=== PATIENT | female | born 1970 | race Caucasian/White ===

== ENCOUNTER → 2020-11-01 16:32 | Outpatient (CLI) | payer MEDICARE, SELFPAY ==
[2020-11-01 18:38] LABS: PTHIN 56.3 pg/mL (18.4-80.1)
[2020-11-01 18:42] LABS: Follicle Stimulating Hormone 6.6 mIU/mL; Luteinizing Hormone 11.4 mIU/mL
[2020-11-06 18:24] LABS: Anti-Nuclear Antibody Test Negative (.)
[2020-11-08 07:07] LABS: Testosterone, % Free 2.55 % (0.50-2.80); Testosterone, Free 0.33 ng/dL (0.10-0.85); Testosterone, Total 13 ng/dL (4-50)
[2020-11-08 07:41] LABS: Androstenedione 32 ng/dL (41-262)
== END ==
PROVIDERS: Referring Provider Dermatology Pediatric Dermatology; Visit Provider Dermatology Pediatric Dermatology
DX: L65.0 Telogen effluvium (principal); L40.8 Other psoriasis; M12.9 Arthropathy, unspecified
CPT/HCPCS: 36415; 82157; 82310; 82330; 83001; 83002; 83970; 84402; 84403; 86038

== ENCOUNTER → 2021-11-06 | Outpatient (CLI) | payer OTHER, SELFPAY ==
--- NOTE | 2021-11-06 14:48 | RAD_ITS ---
STUDY: X-RAY - LUMBAR SPINE REASON FOR EXAM: Female, 51 years old. DISC DISPLACEMENT TECHNIQUE: 3 view(s) of the lumbar spine were obtained. COMPARISON: None FINDINGS: Normal lumbar lordosis. There is no substantial scoliosis. There is a normal alignment of the vertebrae. Normal vertebral bodies and endplates. Normal disc space heights. There are surgical clips within the left pelvis. RAD/Lumbar Spine 2 or 3 Views IMPRESSION: Normal x-ray examination of the lumbar spine. Electronically Signed: Yusuf Neves MD at 16:05 EDT ,
[2021-11-06 15:38] LABS: Amphetamine Urine VISTA NEGATIVE (<1000 ng/mL); Barbiturate Urine VISTA NEGATIVE (< 200 ng/mL); Benzodiazepine Urine VISTA POSITIVE (< 200 ng/mL); Cocaine Urine VISTA NEGATIVE (< 300 ng/mL); Ecstacy Urine VISTA NEGATIVE (< 500 ng/mL); Methadone Urine VISTA NEGATIVE (< 300 ng/mL); PCP Urine VISTA NEGATIVE (< 25 ng/mL); THC Urine VISTA NEGATIVE (< 50 ng/mL); Vista UDS pH Range 5
== END | disposition home or self-care (01) ==
PROVIDERS: Referring Provider Anesthesiology Pain Medicine; Visit Provider Anesthesiology Pain Medicine
DX: F11.20 Opioid dependence, uncomplicated (principal); M51.26 Other intervertebral disc displacement, lumbar region
CPT/HCPCS: 72100; 80307

== ENCOUNTER → 2022-07-28 | Outpatient (CLI) | payer MEDICARE, SELFPAY ==
[2022-07-28 14:35] LABS: Amphetamine Urine VISTA NEGATIVE (<1000 ng/mL); Barbiturate Urine VISTA NEGATIVE (< 200 ng/mL); Benzodiazepine Urine VISTA POSITIVE (< 200 ng/mL); Cocaine Urine VISTA NEGATIVE (< 300 ng/mL); Ecstacy Urine VISTA NEGATIVE (< 500 ng/mL); Methadone Urine VISTA NEGATIVE (< 300 ng/mL); PCP Urine VISTA NEGATIVE (< 25 ng/mL); THC Urine VISTA NEGATIVE (< 50 ng/mL); Vista UDS pH Range 5
== END | disposition home or self-care (01) ==
LOC: LAB 13:53
PROVIDERS: Referring Provider Anesthesiology Pain Medicine; Visit Provider Anesthesiology Pain Medicine
DX: F11.20 Opioid dependence, uncomplicated (principal)
CPT/HCPCS: 80307

== ENCOUNTER → 2023-03-10 | Outpatient (CLI) | payer MEDICARE, SELFPAY ==
[2023-03-10 11:38] LABS: Amphetamine Urine VISTA NEGATIVE (<1000 ng/mL); Barbiturate Urine VISTA NEGATIVE (< 200 ng/mL); Benzodiazepine Urine VISTA NEGATIVE (< 200 ng/mL); Cocaine Urine VISTA NEGATIVE (< 300 ng/mL); Ecstacy Urine VISTA NEGATIVE (< 500 ng/mL); Methadone Urine VISTA NEGATIVE (< 300 ng/mL); PCP Urine VISTA NEGATIVE (< 25 ng/mL); THC Urine VISTA NEGATIVE (< 50 ng/mL); Vista UDS pH Range 6
--- OUTSIDE RECORDS SUMMARY | 2023-03-10 11:50 | XMS RPT_ITS | CCD ---
Author Name Unknown Address [address] [place] [address] Organization [facility] Care Team Providers Care [facility] Room Service Supervisor Name Role Phone OVI MULLINS Unavailable Unavailable HOSPITALISTJOSÉ LUIS Unavailable Unavailable THIERNO VÁSQUEZ Unavailable Unavailable OVI UMLLINS Unavailable Unavailable kSy Garsia Unavailable Unavailable PROVIDER, UNKNOWN Unavailable Unavailable Ovi Mullins Unavailable Unavailable MERT, LUIS J Unavailable Unavailable JHOAN, ELENI Unavailable Unavailable IMCA Unavailable Unavailable IMCA Unavailable Unavailable JHOAN, ELENI Unavailable Unavailable IMCA Unavailable Unavailable IMCA Unavailable Unavailable JHOAN, ELENI Unavailable Unavailable IMCA Unavailable Unavailable JHOAN, ELENI Unavailable Unavailable IMCA Unavailable Unavailable JHOAN, ELENI Unavailable Unavailable IMCA Unavailable Unavailable IMCA Unavailable Unavailable JHOAN, ELENI Unavailable Unavailable IMCA Unavailable Unavailable IMCA Unavailable Unavailable JHOAN, ELENI Unavailable Unavailable IMCA Unavailable Unavailable JHOAN, ELENI Unavailable Unavailable IMCA Unavailable Unavailable JHOAN, ELENI Unavailable Unavailable IMCA Unavailable Unavailable IMCA Unavailable Unavailable JHOAN, ELENI Unavailable Unavailable IMCA Unavailable Unavailable IMCA Unavailable Unavailable JHOAN, ELENI Unavailable Unavailable IMCA Unavailable Unavailable JHOAN, ELENI Unavailable Unavailable IMCA Unavailable Unavailable JHOAN, ELENI Unavailable Unavailable IMCA Unavailable Unavailable JHOAN, ELENI Unavailable Unavailable IMCA Unavailable Unavailable JHOAN, ELENI Unavailable Unavailable IMCA Unavailable Unavailable GROSS, SANDIP L Unavailable Unavailable IMCA Unavailable Unavailable JHOAN, ELENI Unavailable Unavailable IMCA Unavailable Unavailable IMCA Unavailable Unavailable RANDALL, SHANDRA (FEL) Unavailable Unavailabl e IMCA Unavailable Unavailable IMCA Unavailable Unavailable RANDALL, SHANDRA (FEL) Unavailable Unavailabl e IMCA Unavailable Unavailable RANDALL, SHANDRA (FEL) Unavailable Unavailabl e IMCA Unavailable Unavailable IMCA Unavailable Unavailable RANDALL, SHANDRA (FEL) Unavailable Unavailabl e IMCA Unavailable Unavailable RANDALL, SHANDRA (FEL) Unavailable Unavailabl e JHOAN, ELENI M Unavailable Unavailable JHOAN, ELENI M Unavailable Unavailable JHOAN, ELENI M Unavailable Unavailable JHOAN, ELENI M Unavailable Unavailable JHOAN, ELENI M Unavailable Unavailable JHOAN, ELENI M Unavailable Unavailable JHOAN, ELENI M Unavailable Unavailable JHOAN, ELENI M Unavailable Unavailable GROSSSANDIP (RAILROAD CAR LOADER) Unavailable Unavailable RANDALL, SHANDRA Unavailable Unavailable RANDALL, SHANDRA Unavailable Unavailable MARIE [employer]ILRO[employer] CAR LOADER, TONO M Primary Care Physicia n MARIE [employer]RO[employer] CAR LOADER, TONO M Primary Care Physicia n Marie, Tono M Primary Care Provider Tiffany Lindsay MD Unavailable Mcfaddin, Tono M Primary Care Provider Tiffany Lindsay MD Unavailable Kang Anna DPM Unavailable Michelle Gloria MD Primary Care Provider ANABELLE COLLADO Attending Unavailable MARIE, TONO M Primary Care Unavailable IVY KAUFMAN Referring Unavailable IVY KAUFMAN Attending Unavailable MARIE, TONO M Primary Care Unavailable SHAE IVY Referring Unavailable ALEJANDRINA GARNETT Attending Unavailable MARIE, TONO M Primary Care Unavailable MICHELLE GLORIA Primary Care Unavailable ALEJANDRINA GARNETT Attending Unavailable MICHELLE GLORIA Primary Care Unavailable ALEJANDRINA GARNETT Referring Unavailable MICHELLE LGORIA Primary Care Unavailable ALEJANDRINA GARNETT Referring Unavailable KACIE ANTHONY Attending Unavailable MICHELLE GLORIA Primary Care Physician Tiffany Lindsay MD Unavailable Kang Anna DPM Unavailable Michelle Gloria MD Primary Care Provider IVY KAUFMAN Referring Unavailable MARIE, TONO M Primary Care Unavailable HALLGREN, PIEDAD M Attending Unavailable WIDMAR, ANABELLE A Referring Unavailable MARIE, TONO M Primary Care Unavailable HALLGREN, PIEDAD M Attending Unavailable WIDMAR, ANABELLE A Referring Unavailable MARIE, TONO M Primary Care Unavailable HALLGREN, PIEDAD M Attending Unavailable WIDMAR, ANABELLE A Referring Unavailable MARIE, TONO M Primary Care Unavailable JULITA IBRAHIM Admitting Unavailable JULITA IBRAHIM Attending Unavailable MICHELLE GLORIA Primary Care Unavailable MICHELLE GLORIA Referring Unavailable MICHELLE GLORIA Primary Care Unavailable MICHELLE GLORIA Referring Unavailable MICHELLE GLORIA Primary Care Unavailable RENEE CASTRO MD Attending UnavailMD MICHELLE Schilling Primary Care Unavailable MD MICHELLE GLORIA Attending Unavailable MD MICHELLE GLORIA Primary Care Unavailable MD MICHELLE GLORIA Primary Care Unavailable RENEE CASTRO MD Attending UnavailMD MICHELLE Schilling Attending Unavailable MD MICHELLE GLORIA Admitting Unavailable MD MICHELLE GLORIA Primary Care Unavailable MD MICHELLE GLORIA Attending Unavailable MD MICHELLE GLORIA Primary Care Unavailable ALEXUS PRYOR DO Attending Unavailable MD MICHELLE GLORIA Primary Care Unavailable ALEXI VILLALPANDO, DR HERNANDEZ Attending Unavailable MD MICHELLE GLORIA Primary Care Unavailable HANH RAM PA-C Attending UnavailMD MICHELLE Jaime Primary Care Unavailable ALEXI VILLALPANDO, DR HERNANDEZ Attending Unavailable MD MICHELLE GLORIA Primary Care Unavailable ALEXI VILLALPANDO, DR HERNANDEZ Attending Unavailable MD MICHELLE GLORIA Primary Care Unavailable RENEE CASTRO MD Attending UnavailMD MICHELLE Schilling Primary Care Unavailable RENEE CASTRO MD Attending UnavailMD MICHELLE Schilling Primary Care Unavailable Allergies Allergy Classification Reported Allergen(s) Allergy Type Date of Onset Reaction(s) Facility (2 sources) NSAIDs; Translations: [NSAIDS (NON-STEROIDAL ANTI-INFLAMMATO RY DRUG)] Propensity to adverse reactions (disorder) [facility]) Ondansetron; Translations: [ONDANSETRON HCL (PF)] Drug Allergy 9 Mental Status Change [facility] Repository (20 sources) Vancomycin; Translations: [VANCOMYCIN] Drug Allergy 8 Hives [facility] Repository (18 sources) Ketorolac; Translations: [ketorolac] Drug Allergy 1 Anaphylaxis [facility] (7 sources) nabumetone; Translations: [nabumetone] Drug Allergy JOINT STIFFNESS [facility] (7 sources) Ondansetron; Translations: [ondansetron] Drug Allergy [facility] Medications Current Medications Medication Drug Class(es) Dates Sig (Normalized) Sig (Original) aspirin 81 mg delayed release oral tablet (1 source) Platelet Aggregation Inhibitor, Nonsteroidal Anti-inflammatory Drug Start: 06-11-2020 Aspirin Enteric Coated 81 mg oral delayed release tablet Dose : 81 mg = 1 tab(s), Oral, qDay, # 90 tab(s), 0 Refill(s), [facility]: [facility], 155, cm, 05/17/20 9:06:00 EDT, Height, kg, 05/17/20 9:06:00 EDT, Dosing Weight Start Date: 06/11/20 Status: Ordered Aspirin Enteric Coated 81 mg oral delayed release tablet (6 sources) Start: 06-11-2020 Aspirin Enteric Coated 81 mg oral delayed release tablet Dose : 81 mg = 1 tab(s), Oral, qDay, # 90 tab(s), 0 Refill(s), [facility]: [facility] 155, cm, 05/17/20 9:06:00 EDT, Height, kg, 05/17/20 9:06:00 EDT, Dosing Weight Start Date: 06/11/20 Status: Ordered Copaxone 40 mg/mL subcutaneous solution (1 source) Start: 09-09-2019 Copaxone 40 mg/mL subcutaneous solution Dose : 40 mg =, Subcutaneous, Mon/Wed/Fri, 0 Refill(s) Start Date: 09/09/19 Status: Ordered 1 ml glatiramer acetate 40 mg/ml prefilled syringe (6 sources) Start: 09-09-2019 Copaxone 40 mg/mL subcutaneous solution Dose : 40 mg =, Subcutaneous, Mon/Thu/Fri, 0 Refill(s) Start Date: 09/09/19 Status: Ordered pantoprazole 40 mg delayed release oral tablet (7 sources) Proton Pump Inhibitor Start: 05-17-2020 pantoprazole 40 mg oral enteric coated tablet Dose : 40 mg = 1 tab(s), Oral, qDay Start Date: 05/17/20 Status: Ordered potassium chloride 10 meq extended release oral tablet (7 sources) Start: 09-09-2020 Klor-Con 10 oral tablet, extended release Dose : 10 mEq = 1 tab(s), Oral, qDayM, # 30 tab(s), 3 Refill(s), [address] [facility] [address] 165, cm, 09/03/20 11:31:00 EDT, Height, kg, 09/03/20 11:31:00 EDT, Dosing Weight Start Date: 09/09/20 Status: Ordered Completed/Discontinued Medications Medication Drug Class(es) Dates Sig (Normalized) Sig (Original) atorvastatin 40 mg oral tablet (8 sources) HMG-CoA Reductase Inhibitor Start: 05-17-2020 atorvastatin (LIPITOR) 40 mg tablet Take 20 mg by mouth every morning. 0 05/17/2020 Active Problems Active Problems Problem Classification Problem Date Documented Date Episodic/Chronic Alcohol-related disorders (2 sources) Alcohol dependence, uncomplicated; Translations: [Alcohol dependence, uncomplicated (HCC)] Onset: 01-21-20 Chronic Anxiety disorders (16 sources) Anxiety; Translations: [Generalized anxiety disorder] Onset: 01-21-20 22 05-23-2019 Chronic Calculus of urinary tract (7 sources) Urolith 06-04-2016 Episodic Cataract (2 sources) Cortical age-related cataract, bilateral; Translations: [Cortical age-related cataract, bilateral] Onset: 03-30-19 Chronic Diabetes mellitus without complication (7 sources) Type 2 diabetes mellitus 05-01-2020 Chronic Diseases of white blood cells (2 sources) Elevated white blood cell count, unspecified; Translations: [Elevated white blood cell count, unspecified] Onset: 07-21-19 Chronic Disorders of lipid metabolism (7 sources) Hypercholesterolemia 05-23-2019 Chronic Esophageal disorders (7 sources) Gastroesophageal reflux disease 06-04-2016 Chronic Essential hypertension (7 sources) Hypertensive disorder 02-22-2020 Chronic Malaise and fatigue (3 sources) Other malaise; Translations: [Other fatigue] Onset: 07-21-19 Episodic Mood disorders (7 sources) Depressive disorder 05-23-2019 Chronic Multiple sclerosis (9 sources) Multiple sclerosis; Translations: [Multiple sclerosis] Onset: 10-23-1906-04-2016 Chronic Neoplasms of unspecified nature or uncertain behavior (2 sources) Neoplasm of uncertain behavior of appendix; Translations: [Neoplasm of uncertain behavior of digestive organ, unspecified] Onset: 01-14-20 Episodic Nonspecific chest pain (1 source) Chest pain; Translations: [Chest pain, unspecified] Onset: 05-12-19 Episodic Other connective tissue disease (5 sources) Pain in both feet; Translations: [Pain in right foot] Onset: 11-15-19 Episodic Other connective tissue disease (6 sources) Pain of bilateral hands; Translations: [Pain in right hand] Onset: 11-15-19 Episodic Other gastrointestinal disorders (1 source) Other intra-abdominal and pelvic swelling, mass and lump; Translations: [Other intra-abdominal and pelvic swelling, mass and lump] Onset: 01-14-20 Episodic Other liver diseases (2 sources) Fatty (change of) liver, not elsewhere classified; Translations: [Fatty (change of) liver, not elsewhere classified] Onset: 04-23-19 Chronic Other nervous system disorders (6 sources) Neuropathy; Translations: [Polyneuropathy, unspecified] Onset: 11-15-19 Chronic Other nervous system disorders (1 source) Polyneuropathy; Translations: [Polyneuropathy, unspecified] Chronic Other nervous system disorders (1 source) Carpal tunnel syndrome, left upper limb; Translations: [Carpal tunnel syndrome on left] Onset: 04-19-19 Chronic Other nervous system disorders (3 sources) Polyneuropathy, unspecified; Translations: [Neuropathy] Onset: 11-15-19 Chronic Other nervous system disorders (5 sources) Impairment of balance; Translations: [Other abnormalities of gait and mobility] Onset: 11-15-19 Episodic Other screening for suspected conditions (not mental disorders or infectious disease) (1 source) Other abnormal tumor markers; Translations: [Other abnormal tumor markers] Onset: 02-16-20 18 Episodic Other skin disorders (1 source) Localized swelling, mass and lump, trunk; Translations: [Localized swelling, mass and lump, trunk] Onset: 02-18-19 19 Episodic Phlebitis; thrombophlebitis and thromboembolism (7 sources) Deep venous thrombosis of lower extremity 02-22-2020 Episodic Residual codes; unclassified (1 source) Family history of ischemic heart disease and other diseases of the circulatory system; Translations: [Family history of ischemic heart disease and other diseases of the circulatory system] Onset: 06-10-19 23 Episodic Substance-related disorders (7 sources) Substance misuse behavior 10-15-2020 Episod ic Unclassified (3 sources) Unknown / UNK(Unknown) Onset: 08-25-19 17 Past or Other Problems Problem Classification Problem Date Documented Da te Episodic/Chronic Allergic reactions (4 sources) Allergy status to other antibiotic agents status; Translations: [Allergy status to other drugs, medicaments and biological substances status] Onset: 03-30-2017 Episodic Chronic obstructive pulmonary disease and bronchiectasis (1 source) Chronic obstructive pulmonary disease and bronchiectasis Onset: 08-24-2016 Lymphadenitis (1 source) Generalized enlarged lymph nodes; Translations: [Generalized enlarged lymph nodes] Onset: 07-20-2017 Episodic Other connective tissue disease (2 sources) Pain in right hand; Translations: [Pain in both hands] Onset: 11-14-2021 Episodic Other connective tissue disease (2 sources) Pain in left hand; Translations: [Pain in both hands] Onset: 11-14-2021 Episodic Other connective tissue disease (1 source) Pain in right foot; Translations: [Pain in both feet] Onset: 11-14-2021 Episodic Other connective tissue disease (1 source) Pain in left foot; Translations: [Pain in both feet] Onset: 11-14-2021 Episodic Other eye disorders (2 sources) Ocular pain, left eye; Translations: [Ocular pain, left eye] Onset: 03-30-2017 Episodic Other gastrointestinal disorders (2 sources) Change in bowel habit; Translations: [Change in bowel habit] Onset: 07-03-2022 Episodic Other gastrointestinal disorders (2 sources) Abdominal distension (gaseous); Translations: [Abdominal distension (gaseous)] Onset: 07-03-2022 Episodic Other lower respiratory disease (1 source) Shortness of breath; Translations: [Shortness of breath] Onset: 07-20-2017 Episodic Other nervous system disorders (2 sources) Personal history of other diseases of the nervous system and sense organs; Translations: [Personal history of dis of the nervous sys and sense organs] Onset: 03-30-2017 Episodic Other nervous system disorders (1 source) Other abnormalities of gait and mobility; Translations: [Balance problem] Onset: 11-14-2021 Episodic Viral infection (1 source) Infectious mononucleosis, unspecified without complication; Translations: [Infectious mononucleosis, unspecified without complication] Onset: 08-10-2017 Episodic Results Test Name Value Interpretation Reference Range Facil ity Vital Signs Date Time Vital Sign Value Performing Clinician Facility 12-05-2021 13:05-0400 Body height 159.5 cm Alejandrina Garnett APRN.CNP Work Phone: [facility] 12-05-2021 13:05-0400 Body temperature 97.5 [degF] Alejandrina Garnett APRN.[employer]ILRO[employer] CAR LOADER Work Phone: [facility] 12-05-2021 13:05-0400 Body weight 70.76 kg Alejandrina Garnett APRN.[employer]ILRO[employer] LOADER Work Phone: [facility] 12-05-2021 13:05-0400 Diastolic blood pressure 76 mm[Hg] Alejandrina Garnett APRN.RAILROAD CAR LOADER Work Phone: [facility] 12-05-2021 13:05-0400 Heart rate 85 /min Alejandrina Garnett APRN.RAILROAD CAR LOADER Work Phone: [facility] 12-05-2021 13:05-0400 Systolic blood pressure 111 mm[Hg] Alejandrina Garnett APRN.RAILROAD CAR LOADER Work Phone: [facility] 07-23-2021 02:10-0400 Diastolic blood pressure 82 mm[Hg] DR TERRI MONSIVAIS DO [facility] 07-23-2021 02:10-0400 Heart rate 81 /min DR TERRI MONSIVAIS DO [facility] 07-23-2021 02:10-0400 Respiratory rate 16 /min DR TERRI RIDER DO [facility] 07-23-2021 02:10-0400 Systolic blood pressure 132 mm[Hg] DR TERRI RIDER DO [facility] 07-22-2021 23:34-0400 Body temperature 97.52 [degF] DR TERRI RIDER DO [facility] 07-22-2021 23:34-0400 Heart rate 79 /min DR TERRI RIDER DO [facility] 07-22-2021 23:34-0400 Respiratory rate 18 /min DR TERRI RIDER DO [facility] 07-22-2021 18:17-0400 Body temperature 99.32 [degF] DR TERRI RIDER DO [facility] 07-22-2021 18:17-0400 Body weight 69.[address] TERRI RIDER DO [facility] 07-22-2021 18:17-0400 Diastolic blood pressure 96 mm[Hg] DR TERRI RIDER DO [facility] 07-22-2021 18:17-0400 Heart rate 92 /min DR TERRI RIDER DO [facility] 07-22-2021 18:17-0400 Respiratory rate 22 /min DR TERRI RIDER DO [facility] 07-22-2021 18:17-0400 Systolic blood pressure 167 mm[Hg] DR TERRI MONSIVAIS DO [facility] 05-11-2021 02:36-0400 Diastolic blood pressure 80 mm[Hg] MANAV LAI DO [facility] 05-11-2021 02:36-0400 Heart rate 71 /min MANAV LAI DO [facility] 05-11-2021 02:36-0400 Respiratory rate 14 /min MANAV LAI DO [facility] 05-11-2021 02:36-0400 Systolic blood pressure 119 mm[Hg] MANAV LAI DO [facility] 05-11-2021 00:41-0400 Diastolic blood pressure 98 mm[Hg] MANAV LAI DO [facility] 05-11-2021 00:41-0400 Heart rate 66 /min MANAV LAI DO [facility] 05-11-2021 00:41-0400 Mean blood pressure 106 mm[Hg] MANAV LAI DO [facility] 05-11-2021 00:41-0400 Respiratory rate 12 /min MANAV LAI DO [facility] 05-11-2021 00:41-0400 Systolic blood pressure 123 mm[Hg] MANAV LAI DO [facility] 05-10-2021 21:56-0400 Diastolic blood pressure 86 mm[Hg] MANAV LAI DO [facility] 05-10-2021 21:56-0400 Heart rate 80 /min MANAV LAI DO [facility] 05-10-2021 21:56-0400 Respiratory rate 18 /min MANAV LAI DO [facility] 05-10-2021 21:56-0400 Systolic blood pressure 130 mm[Hg] MANAV LAI DO [facility] Encounters Encounter Date Encounter Type Care Provider Facility Start: 02-28-2023 End: 02-28-2023 ambulatory HANH RAM PA-C Facility:A Start: 07-23-2022 End: 07-24-2022 ambulatory MD MICHELLE GLORIA Facility:B Start: 07-23-2022 End: 07-23-2022 Patient encounter procedure RENEE CASTRO MD [facility] Start: 07-07-2022 End: 07-08-[address] MARY TRUONG MD Facility:A Start: 07-03-2022 End: 07-08-[address] MARY TRUONG MD Facility:A Start: 06-09-2022 ambulatory Melissa Escobedo RT(R) [facility] Medicine Procedures Date Procedure Procedure Detail Performing Clinician Start: 10-24-2021 Adult depression scr eening assessment Anabelle Collado [employer]ADER Work Phone: Start: 10-22-2021 Mri brain brain stem w/o w/contrast material Ivy Kaufman MD Work Phone: Start: 03-25-2021 Adult depression scr eening assessment [facility] Start: 01-09-2021 Colonoscopy Piedad Clay desmondgren PT Start: 02-16-2009 Diagnostic laparoscopy MANAVMARGY LAI DO Start: 02-16-2009 Oophorectomy MANAV RANDLE DO Start: 02-16-2005 Augmentation mammoplasty MANAV LAI DO Plan of Treatment Date Care Activity Detail Author Start: 12-05-2024 DIABETES SCREEN DIABETES SCREEN [facility] Start: 10-18-2023 DIABETES SCREEN DIABETES SCREEN [facility] Start: 10-24-2022 Adult depression screening assessment DEPRESSION SCREENING [facility] Start: 10-17-2022 Influenza vaccination INFLUENZ A (Season Ended) [facility] Start: 03-25-2022 Adult depression screening assessment DEPRESSION SCREENING [facility] Start: 02-16-2022 DEPRESSION ASSESSMENT DEPRESSION ASS ESSMENT [facility] Start: 01-09-2022 Colonoscopy COLONOSCOPY [facility] Start: 01-09-2022 COLORECTAL CANCER SCREENING COLORECTAL CANCER SCREENING [facility] Start: 12-05-2021 End: 02-04-2022 C reactive protein [Mass/volume] in Serum or Plasma [facility] Work Phone: Immunizations Immunization Date Immunization Notes Care Provider Fa cility 10-03-2020 tetanus toxoid, redu anibal diphtheria toxoid, and acellular pertussis vaccine, adsorbed; Translations: [Boostrix (Tdap)] MANAV LAI DO [facility] 03-03-2009 tetanus and diphther ia toxoids, adsorbed, preservative free, for adult use (5 Lf of tetanus toxoid and 2 Lf of diphtheria toxoid) MANAV LAI DO [facility] Payers Date Payer Category Payer Medicaid MEDICAID [facility] MEDICAID [id number] 2021-Present [phone] [address] [place] [address] Medicaid [id number] 2021 Medicaid [id number] 2021 Unknown [id number] 2011 Medicare 1971 Unknown [id number] 2.16.840.1.397011.3.579.2.278 1971 Unknown [id number] 2.16.840.1.158688.3.579.2.278 1971 Unknown [id number] 2.16.840.1.478262.3.579.2.278 1971 Unknown [id number] 2.16.840.1.499163.3.579.2.278 1971 Unknown [id number] 2.16.840.1.782344.3.579.2.278 1971 Unknown [id number] 2.16.840.1.837993.3.579.2.278 1971 Unknown [id number] 2.16.840.1.096962.3.579.2.278 1971 Unknown [id number] 2.16840.1.941128.3.579.2.278 1971 Unknown [id number] 2.16.840.1.991195.3.579.2.278 1971 Unknown [id number] 2.16.840.1.856212.3.579.2.278 1971 Unknown [id number] 2.16.840.1.753873.3.579.2.278 1971 Unknown [id number] 2.16.840.1.212000.3.579.2.278 1971 Unknown [id number] 2.16.840.1.981341.3.579.2.278 1971 Unknown [id number] 2.16.840.1.435375.3.579.2.278 1971 Unknown [id number] 2.16.840.1.002923.3.579.2.278 1971 Unknown [id number] 2.16.840.1.299985.3.579.2.278 1971 Unknown [id number] 2.16.840.1.102517.3.579.2.278 1971 Unknown [id number] 2.16.840.1.189703.3.579.2.278 1971 Unknown [id number] 2.16.840.1.046287.3.579.2.278 1971 Unknown [id number] 2.16.840.1.019033.3.579.2.278 1971 Unknown [id number] 2.16.840.1.256530.3.579.2.278 1971 Unknown [id number] 2.16.840.1.588562.3.579.2.278 1971 Unknown [id number] 2.16.840.1.958320.3.579.2.278 1971 Unknown [id number] 2.16840.1.345894.3.579.2.278 1971 Unknown [id number] 2.840.1.813876.3.579.2.62 1971 Unknown [id number] 2.16840.1.297483.3.579.2.62 1971 Unknown [id number] 2.16.840.1.183435.3.579.2.627 1971 Unknown [id number] 2.16840.1.706219.3.579.2.627 1971 Unknown [id number] 2.16.840.1.837192.3.579.2.627 1971 Unknown [id number] 2.16.840.1.143366.3.579.2.627 1971 Unknown [id number] 2.16.840.1.954273.3.579.2.627 1971 Unknown [id number] 2.16.840.1.629055.3.579.2.627 1971 Unknown [id number] 2.16.840.1.592776.3.579.2.627 1971 Unknown [id number] 2.16.840.1.505697.3.579.2.627 1971 Unknown [id number] 2.16.840.1.373697.3.579.2.627 1971 Unknown [id number] 2.16.840.1.581582.3.579.2.627 Medicare [id number] Medicare [id number] Social History Date Type Detail Facility Start: 05-01-2020 Light tobacco smoker (finding) [facility] Sex Assigned At Female [facility] Start: 02-18-2018 End: 12-05-2021 Tobacco smoking status ALIS Smokes tobacco daily [facility] End: 02-16-2022 History of tobacco use Cigarette Smoker [facility] Start: 02-18-2018 End: 04-15-2022 Cigarettes smoked current (pack per day) - Reported 0.3 [facility] Start: 02-18-2018 End: 04-15-2022 Tobacco use and exposure Smokeless tobacco non-user [facility] Start: 03-27-2021 End: 12-05-2021 Alcohol intake Current non-drinker of alcohol (finding) [facility] Start: 1970 Sex Assigned At Not on file C [facility] Start: 10-12-2021 End: 12-05-2021 Exposure to SARS-CoV-2 (event) Not sure [facility] Start: 04-15-2022 Tobacco smoking stat us ALIS Ex-smoker [facility] End: 02-16-2022 History of tobacco use Current smoker [facility] Start: 04-18-2022 Alcohol intake Ex-drinker (finding) [facility] Start: 04-15-2022 Alcohol Comment [facility] Functional Status Date Assessment Result Facility 07-23-2021 Functional Status Awake [facility] Mental Status Date Assessment Result Facility 07-23-2021 Mental Status Oriented x [facility] Clinical Notes 06-07-2021 to 06-09-2022 Yusuf Galeano RT(R) - 06/09/2022 8:30 AM Mikal Garnett APRN.RAILROAD CAR LOADER - 12/12/2021 1:17 PM Mikal Garnett APRN.RAILROAD CAR LOADER - 12/05/2021 1:18 PM Charbel Garza - 12/05/2021 9:37 AM EDT Note Date & Type Note Facility 06-09-2022 Note HNO ID: [id number] Author: RT Alie(R) Service: ? Author Type: Technologist Type: Progress Notes Filed: 06/09/2022 8:31 AM Note Text: RADIOLOGY SERVICE PROGRESS NOTE SERVICE DATE: 06/09/2022 SERVICE TIME: 8:30 AM PATIENT IDENTITY VERIFICATION COMPLETED USING TWO (2) STANDARD IDENTIFIERS: Name and Date of confirmed by patient verbally FALL SCREENING: Has the patient had 2 falls in the last year or 1 fall with injury or currently using an Ambulatory Assistive Device (Walker, Cane, Wheelchair, Crutches, etc.)? No PATIENT GENDER DATA: .female : No status: No ALLERGIES: Reviewed and unchanged MEDICATIONS REVIEWED: Not applicable PATIENT RELEVANT IMPLANT DATA REVIEWED: Not Applicable CREATININE: Creatinine Date Value Ref Range Status 12/05/2021 0.68 0.58 - 0.96 mg/dL Final 07/31/2020 0.52 0.510 - 0.950 MG/DL Final Comment: Patients receiving either N-Acetylcysteine (NAC) or Metamizole prior to venipuncture, may have falsely depressed results. 01/13/2018 0.74 0.51 - 0.95 mg/dL Final Estimated Glomerular Filtration Rate Date Value Ref Range Status 12/05/2021 106 >=60 mL/min/1.73m? Final Comment: Estimated Glomerular Filtration Rate (eGFR) is calculated using the 2020 CKD-EPI creatinine equation. This equation utilizes serum creatinine, sex, and age as parameters. The creatinine assay has traceable calibration to isotope dilution-mass spectrometry. Refer to KDIGO guidelines for clinical interpretation. In patients with unstable renal function, e.g. those with acute kidney injury, the eGFR may not accurately reflect actual GFR. eGFR- Date Value Ref Range Status 07/31/2020 Greater than 60 Final P.O.C.T. RESULTS: N/A June 09, [address] PERFORMED: No IV SITE: Ambulatory: A peripheral IV was started in the Right antecubital site with a Angio cath: 22 gauge. POST EXAM PIV STATUS: Discontinued PROCEDURE TYPE: NM Stress: 13.3 mCi [id number] was administered IV for Rest Imaging at 06:35 by [facility]. 31 mCi Hm26h-[id number] was administered IV for Stress Imaging at 08:15 by [facility]. ADMINISTRATION TIME: 08:15 PATIENT DISCHARGED TO: Ambulatory patient, left NM department area. A Diagnostic radioactive procedure has taken place, with no further precautions necessary other than routine body substance precautions. More information regarding radiation safety can be found using this link: [email or web address] [email or web address]%20Medic [email or web address] SIGNATURE: RT Alie(R) PATIENT NAME: Jimmy Villar DATE: June 09, 2022 TIME: 8:30 AM PAGER/CONTACT #: [facility] 06-09-2022 History of Present illness Narrative RADIOLOGY SERVICE PROGRESS NOTE SERVICE DATE: 06/09/2022 SERVICE TIME: 8:30 AM PATIENT IDENTITY VERIFICATION COMPLETED USING TWO (2) STANDARD IDENTIFIERS: Name and Date of confirmed by patient verbally FALL SCREENING: Has the patient had 2 falls in the last year or 1 fall with injury or currently using an Ambulatory Assistive Device (Walker, Cane, Wheelchair, Crutches, etc.)? No PATIENT GENDER DATA: .female : No status: No ALLERGIES: Reviewed and unchanged MEDICATIONS REVIEWED: Not applicable PATIENT RELEVANT IMPLANT DATA REVIEWED: Not Applicable CREATININE: Creatinine Date Value Ref Range Status 12/05/2021 0.68 0.58 - 0.96 mg/dL Final 07/31/2020 0.52 0.510 - 0.950 MG/DL Final Comment: Patients receiving either N-Acetylcysteine (NAC) or Metamizole prior to venipuncture, may have falsely depressed results. 01/13/2018 0.74 0.51 - 0.95 mg/dL Final Estimated Glomerular Filtration Rate Date Value Ref Range Status 12/05/2021 106 >=60 mL/min/1.73m Final Comment: Estimated Glomerular Filtration Rate (eGFR) is calculated using the 2020 CKD-EPI creatinine equation. This equation utilizes serum creatinine, sex, and age as parameters. The creatinine assay has traceable calibration to isotope dilution-mass spectrometry. Refer to KDIGO guidelines for clinical interpretation. In patients with unstable renal function, e.g. those with acute kidney injury, the eGFR may not accurately reflect actual GFR. eGFR- Date Value Ref Range Status 07/31/2020 Greater than 60 Final P.O.C.T. RESULTS: N/A June 09, [address] PERFORMED: No IV SITE: Ambulatory: A peripheral IV was started in the Right antecubital site with a Angio cath: 22 gauge. POST EXAM PIV STATUS: Discontinued PROCEDURE TYPE: NM Stress: 13.3 mCi [id number] was administered IV for Rest Imaging at 06:35 by [facility]. 31 mCi [id number] was administered IV for Stress Imaging at 08:15 by [facility]. ADMINISTRATION TIME: 08:15 PATIENT DISCHARGED TO: Ambulatory patient, left NM department area. A Diagnostic radioactive procedure has taken place, with no further precautions necessary other than routine body substance precautions. More information regarding radiation safety can be found using this link: [email or web address] [email or web address] [email or web address] SIGNATURE: RT Alie(Ameya) PATIENT NAME: Jimmy Villar DATE: June 09, 2022 TIME: 8:30 AM PAGER/CONTACT #: documented in this encounter [facility] 04-17-2022 Note HNO ID: [id number] Author: Michaelle Muniz RN Service: Nursing Author Type: Registered Nurse Type: Progress Notes Filed: 04/17/2022 1:59 PM Note Text: PRE-PROCEDURE INSTRUCTIONS TO PREPARE FOR YOUR PROCEDURE: Your arrival time for your procedure is 0600. Do NOT eat any solid foods after MIDNIGHT the night prior to your procedure - this includes gum or mints. You can drink clear liquids* up until 0400, which is 2 hours before your arrival time. *Clear liquids = water, carbohydrate drink (sports drink that is clear or yellow in color), Ensure Pre-Surgery (given by TRINI or your ), fruit juice without pulp (apple/cranberry), clear tea, black coffee (no cream). NO ALCOHOL. Shower the morning of the procedure, put on clean clothes, and have clean sheets for your bed to help prevent infection after your procedure. Leave all valuables such as jewelry including rings, piercings, wallets, and purses at home. Wear comfortable, loose-fitting clothing. If you wear glasses or contacts, please bring a case. SPECIAL INSTRUCTIONS: If instructed, bring your first voided urine specimen with you. If you were provided skin preparation to use prior to your procedure, complete this as directed. If you were provided Ensure Pre-Surgery drink, you need to drink this at . This should be consumed quickly (in less than 5 minutes, rather than sipped over time) If you use crutches or a walker, bring them with you. If you have a home CPAP/BIPAP machine, bring it with you. If you were instructed to complete a fleets enema or bowel prep, complete as directed. Bring copy of Living Will/Power of Offensive Coordinator. Do not smoke or chew. If you use tobacco, quit or at least cut down before surgery. Do not smoke or chew after midnight the day before your surgery. This effects bleeding, infection, healing, and so much more. Do not take any Diet or Herbal Supplements 2 weeks prior to your surgery date. Please notify your physician if there is any change in your physical condition such as a cold, cough, fever, sore throat, or skin irritation near the surgical site. Visitors under the age of 14 are restricted in the Surgery Center. UPON ARRIVAL: Access to [facility] (the [facility] building) is located on [address] New Car Driver parking is available for your convenience from 5am-5pm- there is a $5.00 charge for this service. Take the elevators directly inside the entrance to the 1st Floor Surgery Lobby. Sign in at the podium located to the left when you get off the elevators. A payment may be expected at the time of service. One visitor may come back to the preoperative area with you. The preoperative staff will be reviewing your medical history, please let them know if you prefer not to have a visitor with you during this time. Once you are ready for surgery, two visitors at a time are permitted in your preoperative room. PATIENT MEDICATION INSTRUCTIONS Please read below carefully for your personalized instructions. Medications: If you are on blood thinner or anticoagulants including aspirin, please confirm with your surgical team on when to stop these medications. Unless instructed differently by your surgical team, stay on all of your medications until your surgery. Pre-Surgery Med Instructions Medication Instructions sertraline (ZOLOFT) 100 mg tablet Take morning of surgery with a sip of water, no other fluids atorvastatin (LIPITOR) 40 mg tablet Take morning of surgery with a sip of water, no other fluids spironolactone (ALDACTONE) 100 mg tablet Take morning of surgery with a sip of water, no other fluids clonazePAM (KLONOPIN) 2 mg tablet As needed zolpidem (AMBIEN) 5 mg tablet cholecalciferol, vitamin D3, (VITAMIN D3 ORAL) multivitamin tablet XIIDRA 5 % dpet May use If you have any medication changes between receiving these instructions and your surgery date, please provide this updated information with the nurse who calls you the week day prior to your surgical procedure so we can update your list and provide you with updated instructions for the morning of your procedure. [facility] 04-17-2022 Note HNO ID: [id number] Author: Jo-Ann Blankenship MD Service: Anesthesiology Author Type: Physician Type: Progress Notes Filed: 04/17/2022 1:01 PM Note Text: Summary: DOS MEDS PATIENT MEDICATION INSTRUCTIONS Please read below carefully for your personalized instructions. Medications: If you are on blood thinner or anticoagulants including aspirin, please confirm with your surgical team on when to stop these medications. Unless instructed differently by your surgical team, stay on all of your medications until your surgery. Pre-Surgery Med Instructions Medication Instructions sertraline (ZOLOFT) 100 mg tablet Take morning of surgery with a sip of water, no other fluids atorvastatin (LIPITOR) 40 mg tablet Take morning of surgery with a sip of water, no other fluids spironolactone (ALDACTONE) 100 mg tablet Take morning of surgery with a sip of water, no other fluids clonazePAM (KLONOPIN) 2 mg tablet As needed zolpidem (AMBIEN) 5 mg tablet cholecalciferol, vitamin D3, (VITAMIN D3 ORAL) multivitamin tablet XIIDRA 5 % dpet May use If you have any medication changes between receiving these instructions and your surgery date, please provide this updated information with the nurse who calls you the week day prior to your surgical procedure so we can update your list and provide you with updated instructions for the morning of your procedure. [facility] 03-27-2022 Evaluation + Plan note Diagnostic Tests PendingCryoglobulin 03/27/22Copper Level 03/27/22Zinc Level 03/27/22Porphyrins, Serum Total 03/27/22Heavy Metal Screen 03/27/22 [facility] 12-25-2021 Note HNO ID: [id number] Author: Piedad Belle, PT Service: ? Author Type: Physical Therapist Type: Progress Notes Filed: 12/25/2021 8:07 AM Note Text: 12/25/2021 [facility] PHYSICAL THERAPY DISCONTINUANCE OF CARE Plan of Care Period: Start of Care Date: 11/14/21 Last Visit Date: 11/26/2021 Therapy Program: The following is a summary of the interventions provided for this episode of care; Therapeutic exercise and Patient/Family/Caregiver Education Assessment: Based on most recent visit, patient was progressing slower than expected toward functional goals based on pain levels and documented subjective information on progress. Unable to formally assess goal achievement, as patient has not returned to therapy or scheduled additional follow-up appointments. Reason for Discontinuation of Care: Patient has not returned to therapy or scheduled additional follow-up appointments. Piedad Belle [facility] 12-12-2021 Note HNO ID: [id number] Author: Alejandrina Garnett APRN.RAILROAD CAR LOADER Service: ? Author Type: Nurse Practitioner Type: Progress Notes Filed: 12/12/2021 1:26 PM Note Text: Consult for results. December 12, 2021 Diffuse pain, fatigue Answers submitted by the patient for this visit: Review of Systems Rheumatology (Submitted on 12/09/2021) Fever : No Recent Unintentional Weight Change: Yes Eye Pain: Yes Eye Redness: No Vision Disturbance: No Eye Dryness: Yes Nose Bleeds: No Sores in your Mouth: No Trouble Swallowing: No Dry Mouth: No Chest Pain: Yes Leg Swelling: No A Cough: No Shortness of Breath: Yes Pain with Breathing: No Heartburn: No Abdominal Pain: No Diarrhea: No Black Tarry Stools: No Blood in Urine: No Pain or Burning with Urination: No Joint Pain or Stiffness: Yes Muscle Weakness: Yes Muscle Aches: Yes Joint Swelling: No Morning Stiffness in Joints: Yes A Rash: No Skin Color Changes: Yes Hair Loss: Yes Nail Changes: Yes Headaches: No Numbness: No Memory Loss: Yes Swollen Glands: No No results found for: CBCNOTE, CMPCR WBC (k/uL) Date Value 12/05/2021 9.29 RBC (m/uL) Date Value 12/05/2021 4.86 Hemoglobin (g/dL) Date Value 12/05/2021 15.2 Hematocrit (%) Date Value 12/05/2021 44.7 MCV (fL) Date Value 12/05/2021 92.0 MCH (pg) Date Value 12/05/2021 31.3 MCHC (g/dL) Date Value 12/05/2021 34.0 RDW-CV (%) Date Value 12/05/2021 11.9 Platelet Count (k/uL) Date Value 12/05/2021 167 MPV (fL) Date Value 12/05/2021 11.0 Glucose Date Value 12/05/2021 87 mg/dL 07/31/2020 123 MG/DL Potassium Date Value 12/05/2021 4.2 mmol/L 07/31/2020 3.2 MMOL/L Sodium Date Value 12/05/2021 142 mmol/L 07/31/2020 143 MMOL/L Chloride Date Value 12/05/2021 105 mmol/L 07/31/2020 105 MMOL/L CO2 Date Value 12/05/2021 26 mmol/L 07/31/2020 33.0 MMOL/L Creatinine Date Value 12/05/2021 0.68 mg/dL 07/31/2020 0.52 MG/DL BUN Date Value 12/05/2021 14 mg/dL 07/31/2020 13 MG/DL Anion Gap Date Value 12/05/2021 11 mmol/L 07/31/2020 5 MMOL/L Calcium (MG/DL) Date Value 07/31/2020 9.7 Calcium, Total (mg/dL) Date Value 12/05/2021 9.4 Protein, Total (g/dL) Date Value 12/05/2021 7.0 10/17/2020 7.0 Albumin Date Value 12/05/2021 4.7 g/dL 07/31/2020 4.5 GM/DL Bilirubin, Total Date Value 12/05/2021 0.9 mg/dL 07/31/2020 2.40 MG/DL Alkaline Phosphatase (U/L) Date Value 12/05/2021 65 07/31/2020 65 AST (U/L) Date Value 12/05/2021 17 07/31/2020 19 ALT (U/L) Date Value 12/05/2021 15 07/31/2020 21 Glucose Date Value 12/05/2021 87 mg/dL 07/31/2020 123 MG/DL Potassium Date Value 12/05/2021 4.2 mmol/L 07/31/2020 3.2 MMOL/L Sodium Date Value 12/05/2021 142 mmol/L 07/31/2020 143 MMOL/L Chloride Date Value 12/05/2021 105 mmol/L 07/31/2020 105 MMOL/L CO2 Date Value 12/05/2021 26 mmol/L 07/31/2020 33.0 MMOL/L Creatinine Date Value 12/05/2021 0.68 mg/dL 07/31/2020 0.52 MG/DL BUN Date Value 12/05/2021 14 mg/dL 07/31/2020 13 MG/DL Anion Gap Date Value 12/05/2021 11 mmol/L 07/31/2020 5 MMOL/L Calcium (MG/DL) Date Value 07/31/2020 9.7 Calcium, Total (mg/dL) Date Value 12/05/2021 9.4 CRP Date Value Ref Range Status 12/05/2021 <0.3 <0.9 mg/dL Final Sed Rate, Westergren Date Value Ref Range Status 12/05/2021 8 0 - 20 mm/hr Final Last XR Hand/Finger - Impression Only XR HAND GENERAL 3V PA/LAT/OBL BILATERAL Exam End: 12/05/2021 2:06 PM (Final result) Impression: IMPRESSION: Hands: Osteoarthritis predominantly affecting the proximal interphalangeal and distal interphalangeal joints as described. No radiographic findings of inflammatory arthropathy. Feet: No radiographic findings of inflammatory arthropathy. Hallux valgus bilaterally. ... Extensive autoimmune testing did not reveal and autoimmune disorder. At this time I feel she has Fibromyalgia and Osteoarthritis. She has been on multiple medications that have not helped She is interested in a referral to integrative med and we can place that referral now. Fibromyalgia is a is a medical disorder characterized by chronic widespread pain and allodynia, a heightened and painful response to pressure . The cornerstones of therapy for this are optimal sleep, regular aerobic exercise (stationary bike, pool therapy) and optimal treatment of depression. Optimal quality sleep (especially deep sleep - phase 3/4 NREM) is important to achieve. If sleep remains disturbed, there might need to have a sleep study to identify a primary sleep disorder that might need concomitant treatment. We also recommend relaxation techniques such as yoga or biofeedback to help deal better with stress. We emphasize that all the three aspects of the treatment (sleep, exercise, depression) be adressed simultaneously for maximum benefit and effective treatment of this condition. (more content not included)... [facility] 12-12-2021 History of Present illness Narrative Consult for results. December 12, 2021 Diffuse pain, fatigue Answers submitted by the patient for this visit: Review of Systems Rheumatology (Submitted on 12/09/2021) Fever : No Recent Unintentional Weight Change: Yes Eye Pain: Yes Eye Redness: No Vision Disturbance: No Eye Dryness: Yes Nose Bleeds: No Sores in your Mouth: No Trouble Swallowing: No Dry Mouth: No Chest Pain: Yes Leg Swelling: No A Cough: No Shortness of Breath: Yes Pain with Breathing: No Heartburn: No Abdominal Pain: No Diarrhea: No Black Tarry Stools: No Blood in Urine: No Pain or Burning with Urination: No Joint Pain or Stiffness: Yes Muscle Weakness: Yes Muscle Aches: Yes Joint Swelling: No Morning Stiffness in Joints: Yes A Rash: No Skin Color Changes: Yes Hair Loss: Yes Nail Changes: Yes Headaches: No Numbness: No Memory Loss: Yes Swollen Glands: No No results found for: CBCNOTE, CMPCR WBC (k/uL) Date Value 12/05/2021 9.29 RBC (m/uL) Date Value 12/05/2021 4.86 Hemoglobin (g/dL) Date Value 12/05/2021 15.2 Hematocrit (%) Date Value 12/05/2021 44.7 MCV (fL) Date Value 12/05/2021 92.0 MCH (pg) Date Value 12/05/2021 31.3 MCHC (g/dL) Date Value 12/05/2021 34.0 RDW-CV (%) Date Value 12/05/2021 11.9 Platelet Count (k/uL) Date Value 12/05/2021 167 MPV (fL) Date Value 12/05/2021 11.0 Glucose Date Value 12/05/2021 87 mg/dL 07/31/2020 123 MG/DL Potassium Date Value 12/05/2021 4.2 mmol/L 07/31/2020 3.2 MMOL/L Sodium Date Value 12/05/2021 142 mmol/L 07/31/2020 143 MMOL/L Chloride Date Value 12/05/2021 105 mmol/L 07/31/2020 105 MMOL/L CO2 Date Value 12/05/2021 26 mmol/L 07/31/2020 33.0 MMOL/L Creatinine Date Value 12/05/2021 0.68 mg/dL 07/31/2020 0.52 MG/DL BUN Date Value 12/05/2021 14 mg/dL 07/31/2020 13 MG/DL Anion Gap Date Value 12/05/2021 11 mmol/L 07/31/2020 5 MMOL/L Calcium (MG/DL) Date Value 07/31/2020 9.7 Calcium, Total (mg/dL) Date Value 12/05/2021 9.4 Protein, Total (g/dL) Date Value 12/05/2021 7.0 10/17/2020 7.0 Albumin Date Value 12/05/2021 4.7 g/dL 07/31/2020 4.5 GM/DL Bilirubin, Total Date Value 12/05/2021 0.9 mg/dL 07/31/2020 2.40 MG/DL Alkaline Phosphatase (U/L) Date Value 12/05/2021 65 07/31/2020 65 AST (U/L) Date Value 12/05/2021 17 07/31/2020 19 ALT (U/L) Date Value 12/05/2021 15 07/31/2020 21 Glucose Date Value 12/05/2021 87 mg/dL 07/31/2020 123 MG/DL Potassium Date Value 12/05/2021 4.2 mmol/L 07/31/2020 3.2 MMOL/L Sodium Date Value 12/05/2021 142 mmol/L 07/31/2020 143 MMOL/L Chloride Date Value 12/05/2021 105 mmol/L 07/31/2020 105 MMOL/L CO2 Date Value 12/05/2021 26 mmol/L 07/31/2020 33.0 MMOL/L Creatinine Date Value 12/05/2021 0.68 mg/dL 07/31/2020 0.52 MG/DL BUN Date Value 12/05/2021 14 mg/dL 07/31/2020 13 MG/DL Anion Gap Date Value 12/05/2021 11 mmol/L 07/31/2020 5 MMOL/L Calcium (MG/DL) Date Value 07/31/2020 9.7 Calcium, Total (mg/dL) Date Value 12/05/2021 9.4 CRP Date Value Ref Range Status 12/05/2021 <0.3 <0.9 mg/dL Final Sed Rate, Westergren Date Value Ref Range Status 12/05/2021 8 0 - 20 mm/hr Final Last XR Hand/Finger - Impression Only XR HAND GENERAL 3V PA/LAT/OBL BILATERAL Exam End: 12/05/2021 2:06 PM (Final result) Impression: IMPRESSION: Hands: Osteoarthritis predominantly affecting the proximal interphalangeal and distal interphalangeal joints as described. No radiographic findings of inflammatory arthropathy. Feet: No radiographic findings of inflammatory arthropathy. Hallux valgus bilaterally. ... Extensive autoimmune testing did not reveal and autoimmune disorder. At this time I feel she has Fibromyalgia and Osteoarthritis. She has been on multiple medications that have not helped She is interested in a referral to integrative med and we can place that referral now. Fibromyalgia is a is a medical disorder characterized by chronic widespread pain and allodynia, a heightened and painful response to pressure . The cornerstones of therapy for this are optimal sleep, regular aerobic exercise (stationary bike, pool therapy) and optimal treatment of depression. Optimal quality sleep (especially deep sleep - phase 3/4 NREM) is important to achieve. If sleep remains disturbed, there might need to have a sleep study to identify a primary sleep disorder that might need concomitant treatment. We also recommend relaxation techniques such as yoga or biofeedback to help deal better with stress. We emphasize that all the three aspects of the treatment (sleep, exercise, depression) be adressed simultaneously for maximum benefit and effective treatment of this condition. Doing one or the other will result in less than an optimal response to treatment. (R53.81, R53.83) Malaise and fatigue (primary encounter diagnosis) Plan: MIND/BODY HOLISTIC PSYCHOTHERAPY Alejandrina Garnett APRN.RAILROAD CAR LOADER 10 min spent via distance visit telephone call, unable to connect to video today. documented in this encounter [facility] 12-05-2021 Note HNO ID: [id number] Author: RT Dalia(R) Service: ? Author Type: Technologist Type: Progress Notes Filed: 12/05/2021 2:07 PM Note Text: Radiology Service Progress Note PATIENT NAME: Jimmy Villar DATE OF SERVICE: December 05, 2021 TIME: 2:06 PM PATIENT IDENTITY VERIFICATION COMPLETED USING TWO (2) IDENTIFIERS: Name and Date of confirmed by patient verbally. FALL SCREENING: Has the patient had 2 falls in the last year or 1 fall with injury or currently using an Ambulatory Assistive Device (Walker, Cane, Wheelchair, Crutches, etc.)? No PATIENT GENDER DATA: Female. status: : No status: NO. PATIENT RELEVANT IMPLANT DATA REVIEWED: Not Applicable RADIOLOGY DEPARTMENT: General X-ray: Exam(s) Completed: Lower Extremity X-Ray(s): Feet, Bilateral Upper Extremity X-Ray(s): Hand, bilateral PERIPHERAL IV DATA: Not applicable SIGNED BY: RT Dalia(R) December 05, 2021 2:06 PM [facility] 12-05-2021 Note HNO ID: [id number] Author: Alejandrina Garnett APRN.RAILROAD CAR LOADER Service: ? Author Type: Nurse Practitioner Type: Progress Notes Filed: 12/05/2021 1:41 PM Note Text: Rheumatology CONSULTATION Referring Provider: Kang Anna Date of Service: 12/05/2021 Gender: female Ethnicity: Age: [age] year old Chief Complaint: Consult Last Rheumatology visit: None at [facility] Jimmy Villar is a 51 year old female who presents on 12/05/2021 for in person visit for evaluation of Consult. Jimmy is RF negative - 9 (07/20/2017). Her most recent SUMAYA was negative (07/20/2017). HISTORY OF PRESENT ILLNESS Consult for Joint pain and stiffness. INTERVAL HISTORY Referred by neurology - states I have not felt well for a year , has seen multiple doctors, states no one knows what is wrong. States constant hand and foot pain. For her pain she has tried lyrica, gabapentin, elavil, nucenta ER, epidural injection of her back. States her feel tight and hurt all the time, hard time for her to move her toes. nothing makes it better . During the day, she is sedentary. Does not take over the counter medications. ?'ed MS but this ruled out, had prior optic nerve lesion- MRI did not show demylenating problems. She has calf soreness but not as much as much as her hands. Does not do any physical activity. Sleep at is not good - hard time staying asleep. ++ fagtiue non refreshing. Mood- has some frustration with her limitations. She is lowering her smoking- has a few per day . ETOH rare, does not use CBD or MM States she NO numbness of her feet or hands. Fingertips feel sensitive, hard time even getting her nails does Hard time doing ADLS at home or getting going because of pain. L foot prior fx, 'broke 3 months , R foot fx one bone , this was a fall- did not require surgery, used a walking boot. Disease History Patient-Entered Data RAPID 3 [facility] Activities of Daily Living 12/04/2021 2:48 AM Dress self? With MUCH difficulty Get in and out of bed? With SOME difficulty Walk outdoors? With MUCH difficulty Wash and dry body? With MUCH difficulty Get in and out of car? With SOME difficulty RAPID 3 Disease Activity Weighed Score Levels: 0 - 1: Near Remission 1.3 - 2.0: Low Severity 2.3 - 4.0: Moderate Severity 4.3 - 10.0: High Severity RAPID-3 Weighed Score 12/04/2021 RAPID 3 Weighed Score 7.33 (High Severity (HS)) PROMIS Assessments PROMIS Global Health - (T-Scores - the mean of general population = 50. Five points is a clinically meaningful difference.) 03/25/2021 10/24/2021 12/04/2021 Physical T-Score 42.3 44.9 32.4 Mental T-Score 45.8 45.8 28.4 PROMIS CAT Pain Interference 12/04/2021 PROMIS Pain Interference T-Score (range: 10 - 90) 74 (severe) PROMIS Pain Interference Percentile 1 % PROMIS CAT Fatigue 12/04/2021 PROMIS Fatigue T-Score 64 (moderate) PROMIS Fatigue Percentile 8 % PROMIS PHYSICAL FUNCTION T-SCORE 12/04/2021 PROMIS Physical Function T-Score 27 (severe dysfunction) Physical Function Percentile 1 % PAIN EVALUATION 12/05/2021 1303 Pain Level: 8 Pain Location: -- feet, ankles and fingers Description: Aching Duration Amount of Time: -- almost one year Duration Units: Years Frequency: Continuous Intervention/Comfort measure: Medication Treatment History Relevant Previous Investigations CBC Latest Ref Rng AND Units 07/20/2017 01/13/2018 07/31/2020 WBC 4.5 - 11.0 K/CUMM 15.0(H) 10.9(H) 11.3(H) HGB 11.7 - 14.7 g/dL 13.9 13.0 - HEMOGLOBIN 11.5 - 15.5 G/DL - - 15.2 HEMATOCRIT 35.0 - 47.0 % 39.7 37.8 42.7 PLATELETS 150 - 450 K/CU MM 207 187 198 LYMPHOCYTES, ABSOLUTE 0.9 - 4.4 K/CU MM - - 2.10 CMP Latest Ref Rng AND Units 08/10/2017 01/13/2018 07/31/2020 SODIUM 136 - 145 MMOL/L - 139 143 POTASSIUM 3.5 - 5.1 MMOL/L 3.5 3.1(L) 3.2(L) CHLORIDE 98 - 107 MMOL/L - 96(L) 105 CO2 21 - 32 MMOL/L - 32 33.0(H) GLUCOSE 70 - 100 MG/DL - 227(H) 123(H) BUN 7 - 26 MG/DL - 12 13 CREATININE 0.510 - 0.950 MG/DL - 0.74 0.52 CALCIUM, TOTAL 8.5 - 10.5 MG/DL - 9.1 9.7 AST 8 - 34 U/L - 53(H) 19 ALT 13 - 61 U/L - 62 21 ALKALINE PHOSPHATASE 45 - 117 U/L - 102 65 RF and CCP Latest Ref Rng AND Units 07/20/2017 RHEUMATOID FACTOR 0.0 - 15.0 IU/mL <10.0 Hepatitis Screen Latest Ref Rng AND Units 07/20/2017 08/08/2021 HEPAIGG Negative - Negative HEPBCOTOL Negative - Negative HBSAG Negative Negative - Antibodies 07/20/2017 SUMAYA SEE BELOW Urinalysis Latest Ref Rng AND Units 07/31/2020 RBC, URINE 0 - 3 RBC/HPF 1 Imaging / Studies Last XR Hand/Finger - Impression Only No resulted procedures found. Last MRI Hand - Impression Only No resulted procedures found. Last XR Chest - Impression Only No resulted procedures found. Last XR Cervical Spine - Impression Only No resulted procedures found. Review of Systems Review of Systems CONSTITUTION: Positive for: Recent weight change Negative for: Fever HEENT: Positive for: Dry lia (more content not included)... [facility] 12-05-2021 Note Patient Outreach (JOSE ELIAS TNAV) JIMMY VILLAR ([id number]) 1970 F Date Time Provider Department 12/05/21 NO PCP NETNAV During your visit today, we recorded the following information about you: Marianne Greg 12/05/2021 9:38 AM Signed POPULATION HEALTH NAVIGATION OUTREACH Action/[facility] Support: Called pt to schedule an appt in Pain Management. Patient declined Pt identified by name and : YES, via phone Outreach Outcome/Action Spoke to patient or caregiver: Patient declined Did you use a PCP flex slot to schedule this appointment? No Reason for Outreach Care Gap or Scheduling/Wellness visits Payer: Payor: MMO MEDICARE / Plan: [employer] HMO / Product Type: HMO / Care Gap Reviewed:: Specialty Scheduling Reminder: Reminder note to check Health Maintenance for items below Health Maintenance items due: HEPATITIS B(1 of 3 - 3-dose series) Never done COVID-19 VACCINE(1) Never done PNEUMOCOCCAL(1 - PCV) Never done DTAP,TDAP,TD(1 - Tdap) Never done PAP TESTING Never done HPV TESTING Never done MAMMOGRAM Never done LIPID SCREEN Never done DEPRESSION ASSESSMENT Never done SHINGRIX VACCINE(1 of 2) Never done INFLUENZA(1) Never done Message Sent to Practice: No Navigation Signature: Marianne Garza December 05, 2021 9:37 AM Allergies As of Date: 12/05/2021 Noted Allergy Reaction TORADOL (KETOROLAC) 10/17/2020 10 - Anaphylaxis VANCOMYCIN 03/30/2017 4 - Hives ZOFRAN (ONDANSETRON HCL (PF)) 02/18/2018 1 - Mental Status Change Date Reviewed: 10/25/2021 Reviewed by: Anabelle Collado APRN.RAILROAD CAR LOADER - Fully Assessed Prescriptions as of 12/05/2021 - pregabalin (LYRICA) 100 mg capsule Take 2 capsules by mouth twice daily for 180 days. Start after finishing 50 mg BID pregabalin prescription. - OLANZapine (ZYPREXA) 20 mg tablet - XIIDRA 5 % dpet Problem List As Of Date 12/05/2021 Noted Resolved Neuropathy [G62.9] 11/14/2021 Pain in both feet [M79.671, M79.672] 11/14/2021 Pain in both hands [M79.641, M79.642] 11/14/2021 Balance problem [R26.89] 11/14/2021 Encounter Status:Closed by MARIANNE GARZA on 12/05/21 [facility] 12-05-2021 History of Present illness Narrative Images from the original note were not included. Rheumatology CONSULTATION Referring Provider: Kang Anna Date of Service: 12/05/2021 Gender: female Ethnicity: Age: [age] year old Chief Complaint: Consult Last Rheumatology visit: None at [facility] Jimmy Villar is a 51 year old female who presents on 12/05/2021 for in person visit for evaluation of Consult. Jimmy is RF negative - 9 (07/20/2017). Her most recent SUMAYA was negative (07/20/2017). HISTORY OF PRESENT ILLNESS Consult for Joint pain and stiffness. INTERVAL HISTORY Referred by neurology - states I have not felt well for a year , has seen multiple doctors, states no one knows what is wrong. States constant hand and foot pain. For her pain she has tried lyrica, gabapentin, elavil, nucenta ER, epidural injection of her back. States her feel tight and hurt all the time, hard time for her to move her toes. nothing makes it better . During the day, she is sedentary. Does not take over the counter medications. ?'ed MS but this ruled out, had prior optic nerve lesion- MRI did not show demylenating problems. She has calf soreness but not as much as much as her hands. Does not do any physical activity. Sleep at is not good - hard time staying asleep. ++ fagtiue non refreshing. Mood- has some frustration with her limitations. She is lowering her smoking- has a few per day . ETOH rare, does not use CBD or MM States she NO numbness of her feet or hands. Fingertips feel sensitive, hard time even getting her nails does Hard time doing ADLS at home or getting going because of pain. L foot prior fx, 'broke 3 months , R foot fx one bone , this was a fall- did not require surgery, used a walking boot. Disease History Patient-Entered Data RAPID 3 [facility] Activities of Daily Living 12/04/2021 2:48 AM Dress self? With MUCH difficulty Get in and out of bed? With SOME difficulty Walk outdoors? With MUCH difficulty Wash and dry body? With MUCH difficulty Get in and out of car? With SOME difficulty RAPID 3 Disease Activity Weighed Score Levels: 0 - 1: Near Remission 1.3 - 2.0: Low Severity 2.3 - 4.0: Moderate Severity 4.3 - 10.0: High Severity RAPID-3 Weighed Score 12/04/2021 RAPID 3 Weighed Score 7.33 (High Severity (HS)) PROMIS Assessments PROMIS Global Health - (T-Scores - the mean of general population = 50. Five points is a clinically meaningful difference.) 03/25/2021 10/24/2021 12/04/2021 Physical T-Score 42.3 44.9 32.4 Mental T-Score 45.8 45.8 28.4 PROMIS CAT Pain Interference 12/04/2021 PROMIS Pain Interference T-Score (range: 10 - 90) 74 (severe) PROMIS Pain Interference Percentile 1 % PROMIS CAT Fatigue 12/04/2021 PROMIS Fatigue T-Score 64 (moderate) PROMIS Fatigue Percentile 8 % PROMIS PHYSICAL FUNCTION T-SCORE 12/04/2021 PROMIS Physical Function T-Score 27 (severe dysfunction) Physical Function Percentile 1 % PAIN EVALUATION 12/05/2021 1303 Pain Level: 8 Pain Location: -- feet, ankles and fingers Description: Aching Duration Amount of Time: -- almost one year Duration Units: Years Frequency: Continuous Intervention/Comfort measure: Medication Treatment History Relevant Previous Investigations CBC Latest Ref Rng & Units 07/20/2017 01/13/2018 07/31/2020 WBC 4.5 - 11.0 K/CUMM 15.0(H) 10.9(H) 11.3(H) HGB 11.7 - 14.7 g/dL 13.9 13.0 - HEMOGLOBIN 11.5 - 15.5 G/DL - - 15.2 HEMATOCRIT 35.0 - 47.0 % 39.7 37.8 42.7 PLATELETS 150 - 450 K/CU MM 207 187 198 LYMPHOCYTES, ABSOLUTE 0.9 - 4.4 K/CU MM - - 2.10 CMP Latest Ref Rng & Units 08/10/2017 01/13/2018 07/31/2020 SODIUM 136 - 145 MMOL/L - 139 143 POTASSIUM 3.5 - 5.1 MMOL/L 3.5 3.1(L) 3.2(L) CHLORIDE 98 - 107 MMOL/L - 96(L) 105 CO2 21 - 32 MMOL/L - 32 33.0(H) GLUCOSE 70 - 100 MG/DL - 227(H) 123(H) BUN 7 - 26 MG/DL - 12 13 CREATININE 0.510 - 0.950 MG/DL - 0.74 0.52 CALCIUM, TOTAL 8.5 - 10.5 MG/DL - 9.1 9.7 AST 8 - 34 U/L - 53(H) 19 ALT 13 - 61 U/L - 62 21 ALKALINE PHOSPHATASE 45 - 117 U/L - 102 65 RF and CCP Latest Ref Rng & Units 07/20/2017 RHEUMATOID FACTOR 0.0 - 15.0 IU/mL <10.0 Hepatitis Screen Latest Ref Rng & Units 07/20/2017 08/08/2021 HEPAIGG Negative - Negative HEPBCOTOL Negative - Negative HBSAG Negative Negative - Antibodies 07/20/2017 SUMAYA SEE BELOW Urinalysis Latest Ref Rng & Units 07/31/2020 RBC, URINE 0 - 3 RBC/HPF 1 Imaging / Studies Last XR Hand/Finger - Impression Only No resulted procedures found. Last MRI Hand - Impression Only No resulted procedures found. Last XR Chest - Impression Only No resulted procedures found. Last XR Cervical Spine - Impression Only No resulted procedures found. Review of Systems Review of Systems CONSTITUTION: Positive for: Recent weight change Negative for: Fever HEENT: Positive for: Dry mouth Negative for: Nosebleeds, Mouth sores and Trouble swallowing RESPIRATORY: Positive for: Cough, Shortness of breath and Pain with breathing Negative for: Coughing up blood GASTROINTESTINAL: Positive for: Diarrhea, Heartburn and Abdominal pain Negative for: Melena MUSCULOSKELETAL: Positive for: Arthralgias, Myalgias, Muscle weakness and Morning Joint Stiffness Negative for: Joint swelling NEUROLOGICAL: Positive for: Numbness and Memory loss Negative for: Headaches SKIN: Positive for: Skin changes, Hair loss and Nail changes Negative for: Rash EYES: Positive for: Eye pain, Eye redness and Eye dryness Negative for: visual disturbance CARDIOVASCULAR: Positive for: Chest pain Negative for: Leg swelling GENITOURINARY: Negative for: Dysuria and Hematuria HEMATOLOGIC/LYMPHATIC: Positive for: Swollen glandsAll other reviewed and negative other than HPI. Problem List ACTIVE PROBLEM LIST Neuropathy Pain in Both Feet Pain in Both Hands Balance Problem Past Medical History PAST MEDICAL HISTORY Diagnosis Date Chronic pain Hypertension Insomnia Kidney stones Optic neuropathy Prediabetes A1c came down with weight loss TIA (transient ischemic attack) 2019 Past Surgical History PAST SURGICAL HISTORY Procedure Laterality Date ANESTH, SECTION x3 APPENDECTOMY HX BUNIONECTOMY, LAPIDUS-TYPE HYSTERECTOMY HX LITHOTRIPSY / BOTH twice REVISION BREAST AUGMENT COSMET implants now removed TONSILLECTOMY HX Family History FAMILY HISTORY Problem Relation Age of Onset Auto Immunity Mother Osteoporosis Father Cancer Maternal Grandmother lung Cancer Paternal Grandmother stomach other (bladder cancer) Paternal Grandfather Multiple Sclerosis No Family History Social History Social History Tobacco Use Smoking status: Every Day Packs/day: 0.25 Years: 25.00 Pack years: 6.25 Types: Cigarettes Smokeless tobacco: Never Substance Use Topics Alcohol use: No Drug use: No Medications Current Outpatient Medications Medication Sig spironolactone (ALDACTONE) 100 mg tablet Take 100 mg by mouth once daily. clonazePAM (KLONOPIN) 2 mg tablet Take 2 mg by mouth twice daily as needed. zolpidem (AMBIEN) 5 mg tablet Take 5 mg by mouth at bedtime as needed. cholecalciferol, vitamin D3, (VITAMIN D3 ORAL) Take 5,000 Units by mouth once daily. multivitamin tablet Take 1 tablet by mouth once daily. XIIDRA 5 % dpet No current facility-administered medications for this visit. Physical Exam BP 111/76 Pulse 85 Temp (Src) 97.5 (Temporal) Ht 5' 2.795 (1.60m) Wt 156 lb (70.8kg) BMI 27.81 kg/(m^2). Physical Exam Vitals and nursing note reviewed. Constitutional: Appearance: Normal appearance. HENT: Head: Normocephalic. Cardiovascular: Pulses: Normal pulses. Heart sounds: No murmur heard. Pulmonary: Effort: Pulmonary effort is normal. No respiratory distress. Musculoskeletal: General: Tenderness present. No swelling. Normal range of motion. Cervical back: Normal range of motion and neck supple. Right lower leg: No edema. Left lower leg: No edema. Skin: General: Skin is warm and dry. Findings: No rash. Neurological: General: No focal deficit present. Mental Status: She is alert. Mental status is at baseline. Motor: No weakness. Gait: Gait normal. Joint Exam 12/05/2021 Right Left MCP 1 Tender MCP 2 Tender Tender MCP 3 Tender Tender MCP 4 Tender Tender MCP 5 Tender Tender PIP 2 Tender Tender PIP 3 Tender Tender PIP 4 Tender Tender PIP 5 Tender Tender Tarsometatarsal Tender Tender The following joints were examined and normal: Left Glenohumeral, Right Glenohumeral, Left Elbow, Right Elbow, Left Wrist, Right Wrist, Right MCP 1, Left IP, Right IP, Left Knee, Right Knee Impression Diagnoses: (M79.641, M79.642) Pain in both hands (primary encounter diagnosis) Hepatitis B Antibody test: Negative (07/20/2017) At today's visit, the patient's disease appears to be uncertain Plan (M79.641, M79.642) Pain in both hands (primary encounter diagnosis) Comment: Patient with diffuse pain of hand and feet x one year. Denies numbness Has sig loss of ALDs, fatigue, overall pain Suspect she has primary OA that is being enhanced by Fibromyalgia I will screen for more inflammatory process but her exam is most consistent with primary OA of hands. Follow up for results in one week prior reaction to ketorlac so cannot give NSAID, was severe reaction. Plan: SED RATE WESTERGREN, C-REACTIVE PROTEIN (CRP), CBC, COMP METABOLIC PANEL, RHEUMATOID FACTOR BL, CCP ANTIBODY IGG, ANTI CANDICE ID, DNA AB DS + CONF BLD, XR HAND GENERAL 3V PA/LAT/OBL BILATERAL, XR FOOT GENERAL 3V AP/LAT/OBL BILATERAL Return in about 1 week (around 12/12/2021) for use 12/12 1 pm slot for virtual visit . Consultation requested by Dr. Kang Anna for an opinion regarding joint pain and my final recommendations will be communicated back to the requesting physician by way of shared medical record or letter by US mail. I spent a total of 40 minutes on the date of the service which included preparing to see the patient, [id number] patient care, completing clinical documentation, obtaining and/or reviewing separately obtained history, performing a medically appropriate examination, and counseling and educating the patient/family/caregiver. Alejandrina Garnett APRN.RAILROAD CAR LOADER cc: PCP: Michelle Gloria [address] [place] [address] Medical Decision Making: Problems: Low: Stable chronic illness Data: Unique test result(s) reviewed: 3+ Unique test(s) ordered: 3+ Risk: Minimal: Minimal risk from testing/treatment Medical Decision Making Level: 3 - Low documented in this encounter [facility] 12-05-2021 Note HNO ID: [id number] Author: Marianne Garza Service: ? Author Type: ? Type: Progress Notes Filed: 12/05/2021 9:38 AM Note Text: POPULATION HEALTH NAVIGATION OUTREACH Action/[facility] Support: Called pt to schedule an appt in Pain Management. Patient declined Pt identified by name and : YES, via phone Outreach Outcome/Action Spoke to patient or caregiver: Patient declined Did you use a PCP flex slot to schedule this appointment? No Reason for Outreach Care Gap or Scheduling/Wellness visits Payer: Payor: O MEDICARE / Plan: [employer] HMO / Product Type: HMO / Care Gap Reviewed:: Specialty Scheduling Reminder: Reminder note to check Health Maintenance for items below Health Maintenance items due: HEPATITIS B(1 of 3 - 3-dose series) Never done COVID-19 VACCINE(1) Never done PNEUMOCOCCAL(1 - PCV) Never done DTAP,TDAP,TD(1 - Tdap) Never done PAP TESTING Never done HPV TESTING Never done MAMMOGRAM Never done LIPID SCREEN Never done DEPRESSION ASSESSMENT Never done SHINGRIX VACCINE(1 of 2) Never done INFLUENZA(1) Never done Message Sent to Practice: No Navigation Signature: Marianne Garza December 05, 2021 9:37 AM [facility] 12-05-2021 History of Present illness Narrative POPULATION HEALTH NAVIGATION OUTREACH Action/[facility] Support: Called pt to schedule an appt in Pain Management. Patient declined Pt identified by name and : YES, via phone Outreach Outcome/Action Spoke to patient or caregiver: Patient declined Did you use a PCP flex slot to schedule this appointment? No Reason for Outreach Care Gap or Scheduling/Wellness visits Payer: Payor: MMO MEDICARE / Plan: [employer] HMO / Product Type: HMO / Care Gap Reviewed:: Specialty Scheduling Reminder: Reminder note to check Health Maintenance for items below Health Maintenance items due: HEPATITIS B(1 of 3 - 3-dose series) Never done COVID-19 VACCINE(1) Never done PNEUMOCOCCAL(1 - PCV) Never done DTAP,TDAP,TD(1 - Tdap) Never done PAP TESTING Never done HPV TESTING Never done MAMMOGRAM Never done LIPID SCREEN Never done DEPRESSION ASSESSMENT Never done SHINGRIX VACCINE(1 of 2) Never done INFLUENZA(1) Never done Message Sent to Practice: No Navigation Signature: Marianne Garza December 05, 2021 9:37 AM documented in this encounter [facility] 11-26-2021 Note HNO ID: [id number] Author: Piedad Belle PT Service: ? Author Type: Physical Therapist Type: Progress Notes Filed: 11/26/2021 2:45 PM Note Text: Episode Visit Count: 3 Therapist That Will Accept/Oversee The Plan Of Care: Brian Belle PT Start of Care Date: 11/14/21 Onset Date: (1 year ago) Plan of Care Certification Date: 11/14/21 Next Certification Due Date: 01/03/22 REHABILITATION AND SPORTS THERAPY PHYSICAL THERAPY TREATMENT NOTE ASSESSMENT: Jimmy Villar tolerated the session with continuous, unchanging pain. She demonstrated difficulty with balance exercise with eyes closed as she demonstrated a strong posterior push on therapist's hands with therapist offering CGA to Minimal Assist x 1. Patient demonstrated strong ankle strategy when completing eyes closed activities. She tended to weight bear on the lateral aspect of the L foot. She was able to add standing balance activities on blue disc with bilateral UE movements in modified tandem and added cervical movements on blue disc with NBOS demonstrating no significant balance deficits and only required SBA to supervision The patient will continue to benefit from ongoing skilled physical therapy to progress toward set goals. PLAN FOR NEXT VISIT: Continue to progress standing balance activities as patient tolerates SUBJECTIVE: Patient Reason for Visit: Patient reports that she is feeling worse . She states that her symptoms are taking a toll mentally on her and her hand and feet symptoms persist. Pain: Pain Pain Level: 8 Pain Location: Foot - Left;Foot - Right;Hand - Right;Hand - Left Description: Aching;Tightness (hypersensitive) Frequency: Continuous Post Treatment Pain Post Treatment Pain Level: No Change TREATMENT: Therapeutic Exercise: 1: Seated abdominal sets 2 x10 2: Hip adductor sets with LStabs 2 x 10 3: Resisted hip abduction with LStabs and red band 2 x 10 4: Resisted ankle DF with red band x 15 repetitions each LE 5: Resisted ankle PF with red band x 15 repetitions each LE 6: Recumbent Stepper Manual L1 x 5 minutes bilateral UE and LE use 7: Resisted hamstring curls bilateral red band 2 x 10 Skilled Intervention: Patient was educated in proper exercise technique and purpose for exercises. Skilled judgment was provided in selection of appropriate interventions. Correct performance of therapeutic exercises was facilitated with verbal cuing. Neuromuscular Re-Education: 1: NBOS, eyes closed, standing on floor 2 x 30 seconds 2: Modified Tandem Stance, standing on floor, eyes closed 2 x 30 seconds each LE 3: NBOS on blue disc, eyes open, arms at chest 2 x 30 seconds with CGA 4: Modified tandem stance, eyes open on blue disc 2 x 30 seconds each LE with CGA 5: Modified tandem on blue discs with shoulder flexion, abduction, and, alternating punches x 15 each UE 6: NBOS on blue disc with cervical flexion/extension;right/left rotation x 15 each 7: Resisted ambulation 17.5# x5 forwards/backwards with CGA Skilled Intervention: Skilled judgment used to assess appropriate program for balance and coordination activity. Correct performance of home program was facilitated with verbal cueing. Billing Therapeutic Exercise Treatment Minutes: 30 Neuromuscular Re-Education Treatment Minutes: 15 Total Treatment Time Minutes (timed/untimed): 45Time spent on recumbent stepper not included in billed treatment time. Yesy [facility] 11-20-2021 Note HNO ID: [id number] Author: Piedad Belle PT Service: ? Author Type: Physical Therapist Type: Progress Notes Filed: 11/20/2021 4:54 PM Note Text: Episode Visit Count: 2 Therapist That Will Accept/Oversee The Plan Of Care: Brian Belle PT Start of Care Date: 11/14/21 Onset Date: (1 year ago) Plan of Care Certification Date: 11/14/21 Next Certification Due Date: 01/03/22 REHABILITATION AND SPORTS THERAPY PHYSICAL THERAPY TREATMENT NOTE ASSESSMENT: Luz Villar tolerated the session with no issues. She demonstrated decreased balance in modified tandem stance with R LE in forward position and demonstrated ankle strategy with mild inversion-eversion moment. When she was on the recumbent stepper, she placed more weight through her forefeet. She was able to complete 5 minutes with using the bilateral UE and LE and reported no change in symptoms after therapy today.The patient will continue to benefit from ongoing skilled physical therapy to progress toward set goals. PLAN FOR NEXT VISIT: Continue to progress standing balance activities as patient tolerates SUBJECTIVE: Patient Reason for Visit: Patient states that the bilateral feet and bilateral hand pain continuous to be the same. She states that she cannot stand to get her hands wet as they cause tingling.She denies getting a Covid-19 vaccine. She relates no particular incident to elicit her initial symptoms. She did not have her cane with her today. Pain: Pain Pain Level: 8 Pain Location: Foot - Left;Foot - Right;Hand - Right;Hand - Left Description: Aching;Burning;Itching;Tightness Frequency: Continuous Post Treatment Pain Post Treatment Pain Level: No Change TREATMENT: Therapeutic Exercise: 1: *Seated abdominal sets 2 x10 2: *Hip adductor sets with LStabs 2 x 10 3: *Resisted hip abduction with LStabs and red band 2 x 10 4: *Resisted ankle DF with red band x 15 repetitions each LE 5: *Resisted ankle PF with red band x 15 repetitions each LE 6: Recumbent Stepper Manual L1 x 5 minutes bilateral UE and LE use Skilled Intervention: Patient was educated in proper exercise technique and purpose for exercises. Skilled judgment was provided in selection of appropriate interventions. Provided written instruction for home exercise program to facilitate proper performance and compliance. Correct performance of therapeutic exercises was facilitated with verbal and visual cuing. Neuromuscular Re-Education: 1: NBOS, eyes closed, standing on floor 2 x 30 seconds 2: Modified Tandem Stance, standing on floor, eyes closed 2 x 30 seconds each 3: NBOS on blue disc, eyes open, arms at chest 2 x 30 seconds with CGA 4: Modified tandem stance, eyes open on blue disc 2 x 30 seconds each LE with CGA Skilled Intervention: Skilled judgment used to assess appropriate program for balance and coordination activity. Provided CGA for standing balance activities to ensure patient safety. Billing Therapeutic Exercise Treatment Minutes: 30 Neuromuscular Re-Education Treatment Minutes: 15 Total Treatment Time Minutes (timed/untimed): 45 Time spent on Recumbent Stepper not included in billed treatment time. Piedad Belle PT [facility] 11-20-2021 History of Present illness Narrative Episode Visit Count: 2 Therapist That Will Accept/Oversee The Plan Of Care: Brian Belle PT Start of Care Date: 11/14/21 Onset Date: (1 year ago) Plan of Care Certification Date: 11/14/21 Next Certification Due Date: 01/03/22 REHABILITATION AND SPORTS THERAPY PHYSICAL THERAPY TREATMENT NOTE ASSESSMENT: Luz Villar tolerated the session with no issues. She demonstrated decreased balance in modified tandem stance with R LE in forward position and demonstrated ankle strategy with mild inversion-eversion moment. When she was on the recumbent stepper, she placed more weight through her forefeet. She was able to complete 5 minutes with using the bilateral UE and LE and reported no change in symptoms after therapy today.The patient will continue to benefit from ongoing skilled physical therapy to progress toward set goals. PLAN FOR NEXT VISIT: Continue to progress standing balance activities as patient tolerates SUBJECTIVE: Patient Reason for Visit: Patient states that the bilateral feet and bilateral hand pain continuous to be the same. She states that she cannot stand to get her hands wet as they cause tingling.She denies getting a Covid-19 vaccine. She relates no particular incident to elicit her initial symptoms. She did not have her cane with her today. Pain: Pain Pain Level: 8 Pain Location: Foot - Left;Foot - Right;Hand - Right;Hand - Left Description: Aching;Burning;Itching;Tightness Frequency: Continuous Post Treatment Pain Post Treatment Pain Level: No Change TREATMENT: Therapeutic Exercise: 1: *Seated abdominal sets 2 x10 2: *Hip adductor sets with LStabs 2 x 10 3: *Resisted hip abduction with LStabs and red band 2 x 10 4: *Resisted ankle DF with red band x 15 repetitions each LE 5: *Resisted ankle PF with red band x 15 repetitions each LE 6: Recumbent Stepper Manual L1 x 5 minutes bilateral UE and LE use Skilled Intervention: Patient was educated in proper exercise technique and purpose for exercises. Skilled judgment was provided in selection of appropriate interventions. Provided written instruction for home exercise program to facilitate proper performance and compliance. Correct performance of therapeutic exercises was facilitated with verbal and visual cuing. Neuromuscular Re-Education: 1: NBOS, eyes closed, standing on floor 2 x 30 seconds 2: Modified Tandem Stance, standing on floor, eyes closed 2 x 30 seconds each 3: NBOS on blue disc, eyes open, arms at chest 2 x 30 seconds with CGA 4: Modified tandem stance, eyes open on blue disc 2 x 30 seconds each LE with CGA Skilled Intervention: Skilled judgment used to assess appropriate program for balance and coordination activity. Provided CGA for standing balance activities to ensure patient safety. Billing Therapeutic Exercise Treatment Minutes: 30 Neuromuscular Re-Education Treatment Minutes: 15 Total Treatment Time Minutes (timed/untimed): 45 Time spent on Recumbent Stepper not included in billed treatment time. Piedad Belle PT documented in this encounter [facility] 11-14-2021 Note HNO ID: [id number] Author: Piedad Belle PT Service: ? Author Type: Physical Therapist Type: Progress Notes Filed: 12/17/2021 8:34 AM Note Text: Episode Visit Count: 1 Therapist That Will Accept/Oversee The Plan Of Care: Piedad Belle PT Start of Care Date: 11/14/21 Onset Date: (1 year ago) Plan of Care Certification Date: 11/14/21 Next Certification Due Date: 01/03/22 Patient Identified by Name and Date of : Yes REHABILITATION AND SPORTS THERAPY PHYSICAL THERAPY EVALUATION PLAN OF CARE: Assessment: Jimmy Villar presents with chief complaint of bilateral feet and bilateral hand neuropathy symptoms ongoing for 1 year duration that interferes with dressing;grooming;cleaning;cooking; driving;stair negotiation;walking;standing;sleepi ng . Patient states that she spends ll day in bed and has to have assistance for all ADL tasks noted above. She presents with impairments in ADL's, balance, independence in exercise, overall function, sensation, strength , and symptom management. Prognosis for therapy is Fair due to: clinical presentation;multiple co- morbidities;chronic nature of impairments . She will benefit from skilled therapy services to meet the goals established for this plan of care as noted below. Goals for Episode of Care: created on 11/14/21 through 01/03/22 Patient will demonstrate independence in home exercise program for LE/core strengthening and balance activities to decrease fall risk with ambulation. Patient will decrease bilateral feet and bilateral hand pain to 2-5/10 at rest and with functional activities to allow patient to improve dressing, grooming, cooking, cleaning and general ADL tasks. Patient will demonstrate increase in Bilateral LE strength to 4+-5/5 during manual muscle testing in order to improve function for home management tasks, improve LE/core strength and to improve prior functional tasks. Patient will increase balance to single leg stance to 15-20 seconds each LE and tandem balance to 30 seconds each LE to decrease patient's overall fall risk. Patient Goals: To be able to get my life back and get back to work Planned Interventions, Frequency, and Duration: Current Frequency: 2x/week Duration: 6 weeks Total Number of Visits Planned: 12 Planned Treatment Interventions: Therapeutic exercise (82628);Neuromuscular re-education (00671);Therapeutic activities (52669);Patient/Family/Caregiver Education PLAN FOR NEXT VISIT: May initiate standing balance activities and establish HEP based on deficits presented Patient demonstrates fair understanding of plan of care and treatment. The above goals and plan of care were discussed and agreed upon by patient/family. SUBJECTIVE: Jimmy Villar is a 51 year old female seen today for history of bilateral feet and bilateral hand neuropathy ongoing for 1 year duration that patient reports to feel like a sudden onset for her. She was referred by [facility] to physical therapy. She recently had a Lumbar injection with Pain Management on Thursday without relief. She is referred to Rheumatology and Immunology at a [place] location and an appointment is not yet scheduled. She has tried Gabapentin, Lyrica, Nuycinta, Cymbalta, and Amitriptyline without relief. She was diagnosed with R optic neuritis and treated with Copaxone from about 2008 until 2020. It was felt that she may have Multiple Sclerosis, but brain MRI was completed and was negative for Cervical, Thoracic, and Lumbar demyelination. Blood work has been completed and was also negative. She had Lumbar x-rays. Patient was independent with all tasks 1 year ago. She mentioned a 70# weight loss without trying to lose weight that occurred over 3 month duration. She also suffered from androgenetic alopecia.She had 2 falls in the last year that resulted in R and L foot fractures with each fall. She has a cane and will often furniture walk at home. She is frustrated with lack of answers as to her current medical problems and is looking to determine what is the root cause of her symptoms. She will have a follow up with Pain Management in 1 month duration. Patient Goals: To be able to get my life back and get back to work Functional Limitations: dressing;grooming;cleaning;cooking; driving;stair negotiation;walking;standing;sleepi ng Prior Level of Function: Independent without limitations (Takes Ambien and Klonopin to assits with sleeping) Home Environment Equipment Owned: Cane Intake Information: Prescription present Falls Interview: Two or more falls in the last year Falls Intervention: More thorough falls assessment to be performed Pain: Pain Pain Level: 8 Pain Location: Foot - Left;Foot - Right;Hand - Right;Hand - Left Description: Aching;Burning;Itching;Tightness Frequency: Continuous Post Treatment Pain Post Treatment Pain Level: No Change PROMIS Scales Higher is Better 03/25/2021 9 (more content not included)... [facility] documented as of this encounter (statuses as of 06/09/2022) [facility]09-13-2022 Miscellaneous Notes* Telephone Encounter - [facility] - 10/29/2021 3:46 PM EDT Smoking Cessation Navigation Outcome of contact: Left Message Comments: A voicemail has been left for this patient regarding Tobacco Cessation support options. If this patient has any further questions they can email us at or call us at [phone]. [employer] Faculty Member/Smoking Cessation Navigator: [facility] Electronically signed by Bina Clemons [facility] at 10/29/2021 3:46 PM EDT documented [facility] NoteHNO ID: [id number] Author: Denise Pedersen Service: ? Author Type: ? Type: Progress Notes Filed: 10/28/2021 11:28 AM Note Text: Consult to PT, Consult to Rheum/Immun disease, Consult smoking cession, Consult to pain mgt. Orders has been mailed to address on file as requested JIMMY M JIAN [address] [facility] [id number] History of Present illness Narrative* Denise Pedersen - 10/28/2021 11:18 AM EDT Consult to PT, Consult to Rheum/Immun disease, Consult smoking cession, Consult to pain mgt. Ordershas been mailed to address on file as requested JIMMY VILLAR [address] [facility] [id number] documented in [facility] encounterA[facility]22 NoteHNO ID: [id number] Author: Anabelle Collado APRN.RAILROAD CAR LOADER Service: ? Author Type: Nurse Practitioner Type: Progress Notes Filed: 10/25/2021 4:22 PM Note Text: [facility] MULTIPLE SCLEROSIS FOLLOWUP/ESTABLISHED PATIENT VIRTUAL VISIT PRINCIPAL NEUROLOGIC DIAGNOSIS: Right optic neuropathy, peripheral neuropathy Previous disease modifying therapy: Copaxone [id number] Current disease modifying therapy: none Most recent MRI brain: 10/22/2021- normal Outside MRI brain August 2020 - negative for demyelination MRI cervical and thoracic cord November 2020 - negative for demyelination CSF 11/17/20 - negative for OCB CHIEF COMPLAINT: Review diagnostic testing results and discuss implications INTERVAL HISTORY: Usual treating team: Gato Unaccompanied. Last seen 03/27/2021. Not on DMT. Since the patient's last visit the patient reports overall feeling stable. Issues with current MS therapy: Not currently on disease modifying therapy. Today's visit is being completed virtually over Zoom. Patient consented to proceed with virtual visit. Has been having neuropathy of her hands and feet. Has tried Lyrica, Gabapentin, and amitriptyline without improvement. She is now taking Nucynta and pain persists. Thsi is her most notable symptom. Has lost significant amount of hair in the recent months. Has gone to dermatology for topical treatment. Was not able to sleep for a number of months. Started taking Ambien and is able to get a couple good hours of sleep at times. Continues to smoke, but has been cutting down. Smoking 5 cigarettes a day down from one pack. Vision remains stable. ROS: See HPI PAST HISTORY was reviewed and updated: PAST MEDICAL HISTORY Diagnosis Date Chronic pain Hypertension Insomnia Kidney stones Optic neuropathy Prediabetes A1c came down with weight loss TIA (transient ischemic attack) 2018 PAST SURGICAL HISTORY Procedure Laterality Date ANESTH, SECTION x3 APPENDECTOMY HX BUNIONECTOMY, LAPIDUS-TYPE HYSTERECTOMY HX LITHOTRIPSY / BOTH twice REVISION BREAST AUGMENT COSMET implants now removed TONSILLECTOMY HX MEDICATIONS and ALLERGIES were reviewed and updated. SOCIAL HISTORY was reviewed and updated: Current living situation: At home EXAM: General Appearance: well appearing, in no acute distress Mental status evaluation during the interview and examination showed normal level of consciousness, orientation, language, memory, praxis, and higher intellectual function Affect: Normal Speech: normal RESULTS: Monitoring labs: CBC + Diff Component Value Date WBC 11.3 (H) 07/31/2020 HB 15.2 07/31/2020 HCT 42.7 07/31/2020 PLT 198 07/31/2020 No results found for: VITD25 CMP Component Value Date AST 19 07/31/2020 GLUC 123 (H) 07/31/2020 BUN 13 07/31/2020 CREAT 0.52 07/31/2020 NA 143 07/31/2020 K 3.2 (L) 07/31/2020 CHLOR 105 07/31/2020 ALT 21 07/31/2020 No results found for: JCVIND, JCVABNo results found for: JCVAB, JCVIND ASSESSMENT/PLAN: Jimmy Villar is a 51 year old with history of right optic neuropathy and ongoing peripheral neuropathy. She had an outside diagnosis of MS and had been on Copaxone since 2007 to 2020. Outside imaging revealed normal brain and cervical MRI without evidence of demyelinating lesions. Furthermore CSF was negative for OCB. She does not meet criteria for MS diagnosis. Recently repeated MRI brain is again negative for any demyelinating disease. She reports neuropathy in hands in feet, weight loss, difficulty sleeping, hair loss, and gait imbalance. Since MS is not the cause of her symptoms will connect her with specialties for further investigation. Can consider rheumatology consult for ongoing neuropathy, which can be done locally. Will also place pain management consult to be done locally as well. Encouraged routine physical activity and will place PT consult. Encouraged focus on health and wellness and discussed importance of smoking cessation. Will refer to smoking cessation program. Patient does not need to follow at [facility], however, happy to connect her with resources in the future if needed. Patient Health Education Discussed at Visit: Aerobic exercise, Emotional Health/Wellness, and Smoking Cessation Follow-up: With recommended teams moving forward I spent a total of 25 minutes on the date of the service which included preparing to see the patient, [id number] patient care, completing clinical documentation, obtaining and/or reviewing separately obtained history, counseling and educating the patient/family/caregiver, and ordering medications, tests, or procedures. Anabelle Collado APRN.[facility]NP[facility]09-09-2022 Instructions* Patient Instructions* Anabelle Collado APRN.CNP - 10/25/2021 2:03 PM EDT -Consult to rheumatology (mail) -Pain management consult (mail) -Physical therapy consult (mail) -Smoking cessation resources [facility] History of Present illness Narrative* Anabelle Collado APRN.CNP - 10/25/2021 1:45 PM EDT [facility] FOR MULTIPLE SCLEROSIS FOLLOWUP/ESTABLISHED PATIENT VIRTUAL VISIT PRINCIPAL NEUROLOGIC DIAGNOSIS: Right optic neuropathy, peripheral neuropathy Previous disease modifying therapy: Copaxone [id number] Current disease modifying therapy: none Most recent MRI brain: 10/22/2021- normal Outside MRI brain August 2020 - negative for demyelination MRI cervical and thoracic cord November 2020 - negative for demyelination CSF 11/17/20 - negative for OCB CHIEF COMPLAINT: Review diagnostic testing results and discuss implications INTERVAL HISTORY: Usual treating team: Gato Unaccompanied. Last seen 03/27/2021. Not on DMT. Since the patient's last visit the patient reports overall feeling stable. Issues with current MS therapy: Not currently on disease modifying therapy. Today's visit is being completed virtually over Zoom. Patient consented to proceed with virtual visit. Has been having neuropathy of her hands and feet. Has tried Lyrica, Gabapentin, and amitriptyline without improvement. She is now taking Nucynta and pain persists. Thsi is her most notable symptom. Has lost significant amount of hair in the recent months. Has gone to dermatology for topical treatment. Was not able to sleep for a number of months. Started taking Ambien and is able to get a couple good hours of sleep at times. Continues to smoke, but has been cutting down. Smoking 5 cigarettes a day down from one pack. Vision remains stable. ROS: See HPI PAST HISTORY was reviewed and updated: PAST MEDICAL HISTORY Diagnosis Date Chronic pain Hypertension Insomnia Kidney stones Optic neuropathy Prediabetes A1c came down with weight loss TIA (transient ischemic attack) 2018 PAST SURGICAL HISTORY Procedure Laterality Date ANESTH, SECTION x3 APPENDECTOMY HX BUNIONECTOMY, LAPIDUS-TYPE HYSTERECTOMY HX LITHOTRIPSY / BOTH twice REVISION BREAST AUGMENT COSMET implants now removed TONSILLECTOMY HX MEDICATIONS and ALLERGIES were reviewed and updated. SOCIAL HISTORY was reviewed and updated: Current living situation: At home EXAM: General Appearance: well appearing, in no acute distress Mental status evaluation during the interview and examination showed normal level of consciousness,orientation, language, memory, praxis, and higher intellectual function Affect: Normal Speech: normal RESULTS: Monitoring labs: CBC + Diff Component Value Date WBC 11.3 (H) 07/31/2020 HB 15.2 07/31/2020 HCT 42.7 07/31/2020 PLT 198 07/31/2020 No results found for: VITD25 CMP Component Value Date AST 19 07/31/2020 GLUC 123 (H) 07/31/2020 BUN 13 07/31/2020 CREAT 0.52 07/31/2020 NA 143 07/31/2020 K 3.2 (L) 07/31/2020 CHLOR 105 07/31/2020 ALT 21 07/31/2020 No results found for: JCVIND, JCVABNo results found for: JCVAB, JCVIND ASSESSMENT/PLAN: Jimmy Villar is a 51 year old with history of right optic neuropathy and ongoing peripheral neuropathy. She had an outside diagnosis of MS and had been on Copaxone since 2007 to 2020. Outside imaging revealed normal brain and cervical MRI without evidence of demyelinating lesions. FurthermoreCSF was negative for OCB. She does not meet criteria for MS diagnosis. Recently repeated MRI brain is again negative for any demyelinating disease. She reports neuropathy in hands in feet, weight loss, difficulty sleeping, hair loss, and gait imbalance. Since MS is not the cause of her symptoms will connect her with specialties for further investigation. Can consider rheumatology consult for ongoing neuropathy, which can be done locally. Will also place pain management consult to be done locally as well. Encouraged routine physical activity and will place PT consult. Encouraged focus on health and wellness and discussed importance of smoking cessation. Will refer to smoking cessation program. Patient does not need to follow at [facility], however, happy to connect her with resources inthe future if needed. Patient Health Education Discussed at Visit: Aerobic exercise, Emotional Health/Wellness, and Smoking Cessation Follow-up: With recommended teams moving forward I spent a total of 25 minutes on the date of the service which included preparing to see the patient, [id number] patient care, completing clinical documentation, obtaining and/or reviewing separately obtained history, counseling and educating the patient/family/caregiver, and ordering medications, tests, or procedures. Anabelle Collado APRN.EDUAR [facility]22 NoteHNO ID: [id number] Author: RT Nettles (Rt)(Ameya) Service: ? Author Type: Avionics Integration Engineer Type: Progress Notes Filed: 10/22/2021 3:47 PM Note Text: Radiology Service Progress Note DATE OF SERVICE: October 22, 2021 TIME: 3:47 PM PATIENT IDENTITY VERIFICATION COMPLETED USING TWO (2) STANDARD IDENTIFIERS: Name and Date of confirmed by patient verbally. FALL SCREENING: Has the patient had 2 falls in the last year or 1 fall with injury or currently using an Ambulatory Assistive Device (Walker, Cane, Wheelchair, Crutches, etc.)? No PATIENT GENDER DATA: Female. status: : No status: NO. PATIENT RELEVANT IMPLANT DATA REVIEWED: Yes ALLERGIES: Reviewed and unchanged CONTRAST ALLERGY: NO. EXAM: MRI - CONTRAST TYPE: GROUP II PERIPHERAL IV DATA: Ambulatory: A peripheral IV was started in the Right antecubital site with a Angio cath/Butterfly: 22 gauge. RADIOLOGY DEPARTMENT: MR; Exam(s) Completed: Head: Multiple Sclerosis SIGNATURE: RT Radha(R), (R) PATIENT NAME: Jimmy Villar DATE: October 22, 2021 TIME: 3:47 PM[facility] History of Present illness Narrative * RT Nettles (Rt)(R) - 10/22/2021 3:00 PM EDT Radiology Service Progress Note DATE OF SERVICE: October 22, 2021 TIME: 3:47 PM PATIENT IDENTITY VERIFICATION COMPLETED USING TWO (2) STANDARD IDENTIFIERS: Name and Date of confirmed by patient verbally. FALL SCREENING: Has the patient had 2 falls in the last year or 1 fall with injury or currently using an Ambulatory Assistive Device (Walker, Cane, Wheelchair, Crutches, etc.)? No PATIENT GENDER DATA: Female. status: : No status: NO. PATIENT RELEVANT IMPLANT DATA REVIEWED: Yes ALLERGIES: Reviewed and unchanged CONTRAST ALLERGY: NO. EXAM: MRI - CONTRAST TYPE: GROUP II PERIPHERAL IV DATA: Ambulatory: A peripheral IV was started in the Right antecubital site with a Angio cath/Butterfly: 22 gauge. RADIOLOGY DEPARTMENT: MR; Exam(s) Completed: Head: Multiple Sclerosis SIGNATURE: RT Radha(R)RT(R) PATIENT NAME: Jimmy Villar DATE: October 22, 2021 TIME: 3:47 PM documented in this encounterA[facility]06-[facility] Evaluation + Plan note Diagnostic Tests Pending * Mitochondrial Antibody 08/08/21 * Smooth Muscle Antibody Screen 08/08/21 * Liver Kidney Microsome IgG Autoabs 08/08/21 * Cytomegalovirus Antibody 08/08/21 * Rafael Boggs Virus Antibody Titer 08/08/21 * Hepatitis A Antibody IgG 08/08/21 * Hepatitis B Core Antibody Total 08/08/21 * Vitamin A Level 08/08/21 * HSV 1 and 2 IgG and IgM - Panel 08/08/21 * Giardia Antigen 08/08/21 * Stool Culture 08/08/21 * Shiga Toxins 1 and 2 08/08/21 * [facility] Lab Send Out (Non-Blood Specimens) 08/08/21 * Calprotectin, Fecal 08/08/21 * H pylori Antigen, Stool 08/08/21 * [facility] Lab Send Out (Non-Blood Specimens) 08/08/21 [facility] 06-07-2022 Hospital Discharge instructions Patient Education 07/22/2021 22:07:48 Alcohol Abuse Alcohol Abuse Alcoholic drinks harm you when you have too many of them. No set number of drinks defines too much.Drinking that affects your life or your health is called alcohol abuse. Alcohol abuse can hurt yourrelationships with others. You may lose friends, a spouse, or even your job. You may be abusing alcohol if any of the following are true for you: Duties at home or with child psychometrist suffer because of drinking. Duties at work or in school suffer because of drinking. You have missed work or school because of drinking. You use alcohol while driving or using machinery. You have legal problems such as arrests because of drinking. You keep drinking even though it causes serious problems in your life. Health problems Alcohol abuse causes many health problems. Sometimes this can happen after only drinking a little. The effects depend on how much you drink at one time, and how often you drink. Alcohol affects all parts of your body Brain Alcohol affects the central nervous system. It can damage parts of the brain that control your balance and gait, memory, thinking, and emotions. It can cause: Memory loss Blackouts Depression Agitation Sleep problems Seizures These changes may be manager intermediate (permanent). Heart and blood vessels Alcohol can damage heart muscle (cardiomyopathy). This can lead to: Trouble breathing Irregular heartbeat Atrial fibrillation Leg swelling Heart failure Alcohol also makes the blood vessels stiff. This causes high blood pressure. All of these problems raise your risk of having a heart attack or stroke. Liver Alcohol causes fat to build up in the liver. This affects how the liver works. Alcohol also raises the risk for hepatitis. It can cause: Belly (abdominal) pain Belly swelling Loss of appetite Yellowed eyes or skin (jaundice) Bleeding problems Cirrhosis This can affect your ability to fight off infections and can cause diabetes. The liver changes keep it from removing toxins in your blood that can cause brain disease (encephalopathy). This condition cause: Confusion Changed level of consciousness Personality changes Memory loss Seizures, coma, and The liver changes can also cause the veins in your esophagus and stomach to become thin and swollenwith blood (varices). This can cause bleeding and vomiting of blood. Pancreas Alcohol can cause swelling (inflammation) of the pancreas (pancreatitis). This can cause belly pain, fever, and diabetes. Immune system Alcohol weakens your immune system. This makes it harder for you to fight infections and colds. It also increases the chance of getting pneumonia and tuberculosis. Cancer Alcohol raises the risk for several types of cancer. These include cancer of the mouth, esophagus, pharynx, larynx, liver, and breast. Sexual function Alcohol can lead to sexual problems. Home care These guidelines will help you deal with alcohol abuse: Admit you have a problem with alcohol. Ask for help from your healthcare provider. Also ask for help from trusted family members or close friends. Get help from people trained in dealing with alcohol abuse. This may be one-on-one counseling or group therapy. Or it may be an alcohol treatment program. Join a self-help group for alcohol abuse such as Alcoholics Anonymous. Stay away from people who abuse alcohol or tempt you to drink. Follow-up care Follow up with your healthcare provider, or as advised. Contact these groups to get help: Alcoholics Anonymous (AA). Go to www.aa.org. Or check the phone book for meetings near you. National Alcohol and Substance Abuse Information Center (NASAIC). 610.207.7377, www.addictioncareNitric Bioions.[employer] National [place] on Alcoholism and Drug Dependence (NCADD). 790-WFC-LUNG (614-533-2895), www.ncadd.org Call 911 Call 911 if any of these occur: Trouble breathing or slow, irregular breathing Chest pain Sudden weakness on one side of your body or sudden trouble speaking Heavy bleeding or vomiting blood Very drowsy or trouble awakening Fainting or loss of consciousness Rapid heart rate Seizure When to seek medical care Call your healthcare provider right away if any of these occur: Confusion Seeing, hearing, or feeling things that aren t there (hallucinations) Pain in your upper belly that gets worse Vomiting that continues, vomiting with blood, or black or tarry stools Severe shakiness 2021-1030 [employer]. [address] [place] [address], [place] [address]. All rights reserved. This information is not intended as a substitute for professional medical care. Always follow yourhealthcare professional's instructions. Follow Up Care 07/22/2021 18:12:04 With:SULAIMAN ANTOINE MD Address: [address] [facility], [place] [address] [phone] When:2-4 days With:TONO ARMSTRONG APRN-RAILROAD CAR LOADER Address: [address] [place] [address] [phone] When:2-4 days With:Return to if symptoms worsen Address:Unknown When:2-4 days With:Go to emergency room if symptoms worsen Address:Unknown When:2-4 days With:Follow up with primary care provider Address:Unknown When:2-4 days With:Call Physician Referral Address:Unknown When:2-4 days With:Call PEARL Bravo PtYasmeen Refferral [phone] Address:Unknown When:2-4 days With:TONO ARMSTRONG [employer] [facility] Address: [address] [place] [address] [phone] When:2-4 days [facility] 03-26-2022 Hospital Discharge instructions Patient Education 05/11/2021 02:10:19 Chest Pain, Uncertain Cause Uncertain Causes of Chest Pain Chest pain can happen for a number of reasons. Sometimes the cause can't be determined. If your condition does not seem serious, and your pain does not appear to be coming from your heart, your healthcare provider may recommend watching it closely. Sometimes the signs of a serious problem take moretime to appear. Many problems not related to your heart can cause chest pain. These include: Musculoskeletal. Costochondritis is an inflammation of the tissues around the ribs that can occur from trauma or overuse injuries, or a strain of the muscles of the chest wall Respiratory. Pneumonia, collapsed lung (pneumothorax), or inflammation of the lining of the chest and lungs (pleurisy) Gastrointestinal. Esophageal reflux, heartburn, ulcers, or gallbladder disease Anxiety and panic disorders Nerve compression and inflammation Rare miscellaneous problems such as aortic aneurysm (a swelling of the large artery coming out of the heart) or pulmonary embolism (a blood clot in the lungs) Home care After your visit, follow these recommendations: Rest today and avoid strenuous activity. Take any prescribed medicine as directed. Be aware of any recurrent chest pain and notice any changes Follow-up care Follow up with your healthcare provider if you do not start to feel better within 24 hours, or as advised. Call 911 Call 911 if any of these occur: A change in the type of pain: if it feels different, becomes more severe, lasts longer, or begins to spread into your shoulder, arm, neck, jaw or back Shortness of breath or increased pain with breathing Weakness, dizziness, or fainting Rapid heart beat Crushing sensation in your chest When to seek medical advice Call your healthcare provider right away if any of the following occur: Cough with dark colored sputum (phlegm) or blood Fever of 100.4 F (38 C) or higher, or as directed by your healthcare provider Swelling, pain or redness in one leg [id number] [employer]. [address] [place] [address]. All rights reserved. This information is not intended as a substitute for professional medical care. Always follow yourhealthcare professional's instructions. Follow Up Care 05/10/2021 16:15:27 With:TONO ARMSTRONG APRN-RAILROAD CAR LOADER Address: [phone] When:2-4 days [facility] 02-09-2022 NoteHNO ID: [id number] Author: Ivy Kaufman MD Service: ? Author Type: Physician Type: Progress Notes Filed: 03/27/2021 12:57 PM Note Text: [facility] FOLLOWUP/ESTABLISHED PATIENT VISIT PRINCIPAL NEUROLOGIC DIAGNOSIS: Right optic neuropathy, peripheral neuropathy CSF 11/17/20 - negative for OCB Outside MRI brain August 2020 - negative for demyelination MRI cervical and thoracic cord November 2020 - negative for demyelination INTERVAL HISTORY: Usual treating team: Shae / Bob Jimmy is clinically stable. She has started pregabalin for neuropathy, but has yet to find it useful. We reviewed he test results together. The OCT demonstrated features of right optic neuropathy. The CSF did not show OCB. The MRI's of the spinal cord were negative for demyelinating lesions. SUBJECTIVE AND REVIEW OF SYSTEMS: Neuro-QoL Functions (higher=better functioning) Office Visit from 03/27/2021 in [facility] Office Visit from 10/17/2020 in [facility] Upper Extremity Domain T Score 39 39 Lower Extremity Domain T Score 43 40 Cognitive Function Domain T Score 52 37 Positive Affect Well Being T Score ? ? Ability To Participate In Social Roles T Score 42 37 Satisfaction With Social Roles T Score 42 35 Neuro-QoL Symptoms (higher=worse symptoms) Office Visit from 03/27/2021 in [facility] Office Visit from 10/17/2020 in [facility] Sleep Domain T Score 55 73 Fatigue Domain T Score 43 62 Anxiety Domain T Score 48 66 Depression Domain T Score 51 57 Stigma Domain T Score 45 59 Emotional Behavior Dyscontrol T Score ? ? *NeuroQoL is a multi-domain patient-reported quality of life questionnaire. PHQ-9 Office Visit from 03/27/2021 in [facility] Office Visit from 11/21/2020 in Neurology PHQ-9 Score 8 7 *PHQ-9 is a questionnaire for depressive symptoms, with scores 0-4 indicating none, 5-9 mild, 10-14 moderate, 15-19 moderately severe, and 20-27 severe symptoms. PROMIS-10 Office Visit from 03/27/2021 in [facility] Office Visit from 10/17/2020 in [facility] Global Physical Health T Score 42.3 32.4 Global Mental Health T Score 45.8 33.8 0-10 Standard Pain Scale 3 3 *PROMIS-10 is a patient-reported quality of life measure, typically reported as physical and mental domains. Here scores are expressed as percentiles, where the lowest possible score is one, the highest possible score is 99, and 50 is average. PAST HISTORY was reviewed and updated: PAST MEDICAL HISTORY Diagnosis Date - Chronic pain - Hypertension - Insomnia - Kidney stones - Optic neuropathy - Prediabetes A1c came down with weight loss - TIA (transient ischemic attack) 2018 PAST SURGICAL HISTORY Procedure Laterality Date - ANESTH, SECTION x3 - APPENDECTOMY HX - BUNIONECTOMY, LAPIDUS-TYPE - HYSTERECTOMY HX - LITHOTRIPSY / BOTH twice - REVISION BREAST AUGMENT COSMET implants now removed - TONSILLECTOMY HX MEDICATIONS and ALLERGIES were reviewed and updated. SOCIAL HISTORY was reviewed and updated: Social History Tobacco Use Smoking status: Current Every Day Smoker Packs/day: 0.25 Years: 25.00 Pack years: 6.25 Types: Cigarettes Smokeless tobacco: Never Used Living situation: Living at home with assistance Employment Status / Disability: Disabled, permanently or temporarily OBJECTIVE: VITALS AND WELLNESS: BP 124/64 (BP Site: Left Arm, BP Position: Sitting, BP Cuff Size: Large Adult) Pulse 65 Ht 154.9 cm (5' 1 ) Wt 77.8 kg (171 lb 8 oz) BMI 32.40 kg/m? MSPT Performance Tests 10/17/2020 Processing Speed Total Number Correct 44 Low-contrast letter acuity test-2.5 percent opacity 27 Low-contrast letter acuity test-100 percent opacity 56 Dominant hand Right hand MDT Left Hand Time 38.32 MDT Right Hand Time 30.9 Walking Speed Test (25 feet) 12.23 ASSESSMENT/PLAN: Jimmy has a prior history of right optic neuropathy and was treated for several years with copaxone [id number]. She has been off copaxone since July 2020. Given the lack of demyelinating lesions on MRI, we discussed a plan to stay off copaxone and monitor clinically. We will do a progress MRI at one year (August 2021) to compare to the previous. She will continue to work with the neuromuscular team for management of the peripheral neuropathy. Ivy Kaufman, [facility]06-16-2021 [facility]06-16-2021 [facility]21 NotePhysical Therapy Inpatient Evaluation Medical Diagnosis: Difficulty swallowing Therapy Diagnosis: None Demographics: Age: 50Y Gender: Female Primary Language: Salvadorean Preferred Language: Salvadorean Referring Service/Team: Medicine Past Medical History: * Per Medical Charting * Past Medical History MS, hypertension, hyperlipidemia, xhu-mbnsqtn-xhjhtdbus diabetes mellitus Past Surgical History x3, tonsillectomy, appendectomy, hysterectomy History of Present Illness: Date of Onset: 07/31 Additional Information: * Per Medical Charting * Patient is a 50-year-old female with a past medical history significant for MS, hypertension, hyperlipidemia, diabetes mellitus who presents to [facility] emergency department with complaints difficulty swallowing and constipation. Patient states she has had poor appetite and a 70 pound weight loss in a year, she has been to her PCP and [facility] several times with multiple CAT scans that have all been negative. States she has also had difficulty swallowing that has gotten worse over the last couple months, states at times feels like liquids and solids get stuck in her throat and she has to spit them back out. States she has not seen a access clinician and has never had an EGD or colonoscopy. She also reports constipation for the last week, states her last bowel movement was 1 week ago and it was formed stool, denies any blood in her stool or black tarry stools. Reports she did tried an erwo-gas-jhcikfp stool softener with no relief. She also reports some epigastric discomfort that she states is an aching rated a 3 out of 10, reports occasional nausea with no vomiting. Denies fever, chills, chest pain, shortness of breath, dizziness, or urinary symptoms. Patient has a very flat affect and at times is slow to respond, states she does have some depression but does not want to try any medications and is refusing an [facility] consult. In the emergency room, urinalysis negative, white count 11.3, lactate 1.14, potassium 3.2, glucose 123, TSH 0.209. CT abdomen/pelvis showed mild prominence of the wall of the distal esophagus which could be related to esophagitis. No other acute abnormalities are identified. Patient received Grasshopper, morphine, Phenergan, and KCl in the emergency department. Date of Admission: 07/31/2020 4:15:[address] [facility] PATIENT NAME: JIMMY VILLAR [address] MEDICAL REC #: [id number] [place] [address] ADMIT DATE: 07/31/20 SERVICE DATE: 08/01/20 Physical Therapy Assessment Report ATTENDING TREASURE: Kenneth Junior DO Rehabilitation Precautions/Restrictions: Standard Imaging/Testing Results from Chart: * Abdomen/Pelvis CT * IMPRESSION: Mild prominence of the wall of the distal esophagus which could be related to esophagitis. No other acute abnormalities are identified.. SUBJECTIVE Prior Level of Functioning: Indoor Mobility: Patient completed the activities by him/herself, with or without an assistive device, with no assistance from a helper. Stairs: Patient completed the activities by him/herself, with or without an assistive device, with no assistance from a helper. Pt. 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 Prior Device None of Above Yes Patient/Caregiver Goals: Patient's functional goals: see the doctor and figure out if I'm getting a scope Pain: Patient currently without complaints of pain. Home Environment: Patient lives with boyfriend/daughter , who is able to assist patient at discharge. Patient lives in a single family home. Home is two levels. Patient is required to manage 20 step(s) within the home, with right ascending handrails. Second floor bathroom setup available. There are 3 steps to enter the home, with bilateral handrails. There is a ramp available for home entry. Equipment Owned: None. Social History: Marital Status: S.O. Children: at least 1 daughter Reside: with patient Employment Status: not working Recreational Activities/Hobbies: nothing much OBJECTIVE Cognitive Screen Responsiveness: Alert. Orientation: Oriented to person, place, time, and situation. Following Commands: Patient is able to follow 3-step commands. Range of Motion Upper Extremity: Grossly within functional limits Lower Extremity: Grossly within functional limits Strength [facility] PATIENT NAME: JIMMY VILLAR [address] MEDICAL REC #: [id number] [place] [address] ADMIT DATE: 07/31/20 SERVICE DATE: 08/01/20 Physical Therapy Assessment Report ATTENDING TREASURE: Kenneth Junior DO Upper Extremity: Grossly within functional limits Lower Extremity: (more content not included)...[facility] 08-01-2020 NoteOccupational Therapy Inpatient Evaluation Medical Diagnosis: Difficulty swallowing, consitpation OCCUPATIONAL PROFILE AND HISTORY Therapy Diagnosis: Rank Code Description 1 Z74.1 Need for assistance with personal care 2 R53.1 Weakness Demographics: Age: 50Y Gender: Female Primary Language: Salvadorean Preferred Language: Salvadorean Referring Service/Team: Medicine Past Medical History: per charting: Past Medical History MS, hypertension, hyperlipidemia, ppy-nvsdizh-qqbykmbbj diabetes mellitus Past Surgical History x3, tonsillectomy, appendectomy, hysterectomy History of Present Illness: 07/31/20 Additional Information: per charting: Difficulty swallowing and constipation Living Situation Home - Independent History of Present Illness Patient is a 50-year-old female with a past medical history significant for MS, hypertension, hyperlipidemia, diabetes mellitus who presents to [facility] emergency department with complaints difficulty swallowing and constipation. Patient states she has had poor appetite and a 70 pound weight loss in a year, she has been to her PCP and [facility] several times with multiple CAT scans that have all been negative. States she has also had difficulty swallowing that has gotten worse over the last couple months, states at times feels like liquids and solids get stuck in her throat and she has to spit them back out. States she has not seen a access clinician and has never had an EGD or colonoscopy. She also reports constipation for the last week, states her last bowel movement was 1 week ago and it was formed stool, denies any blood in her stool or black tarry stools. Reports she did tried an vxrz-euc-jkuqmkw stool softener with no relief. She also reports some epigastric discomfort that she states is an aching rated a 3 out of 10, reports occasional nausea with no vomiting. Denies fever, chills, chest pain, shortness of breath, dizziness, or urinary symptoms. Patient has a very flat affect and at times is slow to respond, states she does have some depression but does not want to try any medications and is refusing an [place] consult. In the [facility] PATIENT NAME: JIMMY VILLAR [address] MEDICAL REC #: [id number] [place] [address] ADMIT DATE: 07/31/20 SERVICE DATE: 08/01/20 Occupational Therapy Assessment ATTENDING TREASURE: Kenneth Junior DO emergency room, urinalysis negative, white count 11.3, lactate 1.14, potassium 3.2, glucose 123, TSH 0.209. CT abdomen/pelvis showed mild prominence of the wall of the distal esophagus which could be related to esophagitis. No other acute abnormalities are identified. Patient received Grasshopper, morphine, Phenergan, and KCl in the emergency department Date of Admission: 07/31/2020 4:15:00 PM Rehabilitation Precautions/Restrictions: Fall risk , Hx of MS Imaging/Testing Results from Chart: Abdomen/pelvis CT: IMPRESSION: Mild prominence of the wall of the distal esophagus which could be related to esophagitis. No other acute abnormalities are identified.. Prior Level of Functioning: Self Care: Patient completed the activities by him/herself, with or without an assistive device, with no assistance from a helper. Functional Cognition: Patient completed the activities by him/herself, with or without an assistive device, with no assistance from a helper. 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 Home Environment: Patient lives with Boyfriend and dtr ( no 08/09) , who is able to assist patient at discharge. Patient lives in a single family home. Home is two levels. Patient is required to manage 20 step(s) within the home, with left ascending handrails. Second floor bathroom setup available. There are 3 steps to enter the home, with bilateral handrails. There is no ramp available to enter home. Equipment Owned: None. Marital Status: D Social History: Children: 5? Reside: one with patient Employment Status: n/a Recreational Activities/Hobbies: I dont know OBJECTIVE/OCCUPATIONAL PERFORMANCE Activities of Daily Living Current Status Previous Status ADLs Feeding Independent - Grooming Independent - Bathing-UE Independent - Bathing-LE Independent - [facility] PATIENT NAME: JIMMY VILLAR [address] MEDICAL REC #: [id number] [place] [address] ADMIT DATE: 07/31/20 SERVICE DATE: 08/01/20 Occupational Therapy Assessment ATTENDING TREASURE: Kenneth Junior DO Dressing-UE Independent - Dressing-LE Independent - Toileting Independent - Homemaking Independent - AM-PAC Daily Ac (more content not included)...[facility] 07-23-2020 Evaluation + Plan note Future Scheduled Tests Laboratory* Urine Drug Screen 07/23/20 [facility] Evaluation + Plan note Future Appointments Appointment Date:06/27/2022 03:00:00 PM Scheduled Provider: Location:[facility] Appointment Type:PF PFT w/Bronchodiltor [facility] Evaluation note* Diagnosis Multiple sclerosis (HCC) [facility] Diagnosis Neuropathy- Primary Mononeuritis of unspecified site [facility] Diagnosis Neuropathy- Primary Mononeuritis of unspecified site Pain in both feet Pain in limb Pain in both hands Balance problem Other symptoms involving nervous and musculoskeletal systems [facility] Diagnosis Pain in both hands- Primary [facility]* Diagnosis Malaise and fatigue- Primary Other malaise and fatigue [facility] No data available for this section [facility] Hospital Discharge instructions No data available for this section [facility] Note* DECLAN THOMAS MD: SIGN, VERIFY Event Display: VL Venous US/Doppler Both Legs(for DVT) [facility] Progress note No data available for this section [facility] Reason for referral (narrative)* Diagnostic Procedure Only (Routine) - Closed Specialty Diagnoses / Procedures Referred By Contac t Referred To Contact XR IMAGING Diagnoses Pain in both hands Procedures XR FOOT GENERAL 3V AP/LAT/OBL BILATERAL RADEX FOOT COMPLETE MINIMUM 3 VIEWS Alejandrina Garnett APRN.EDUAR [address] [id number] Xr Imaging Referral ID Status Reason Start Date Expiration Date V isits Requested Visits Authorized [id number] Closed Auto-Generate d Referral 12/05/2021 01/04/2023 1 1 Electronically signed by Alejandrina Garnett [employer] TEACHER.RAILROAD CAR LOADER at 12/05/2021 1:33 PM EDT * Diagnostic Procedure Only (Routine) - Closed Specialty Diagnoses / Procedures Referred By Contac t Referred To Contact XR IMAGING Diagnoses Pain in both hands Procedures XR HAND GENERAL 3V PA/LAT/OBL BILATERAL RADEX HAND MINIMUM 3 VIEWS Alejandrina Garnett APRN.RAILROAD CAR LOADER [address] [place] [address] Xr Imaging Referral ID Status Reason Start Date Expiration Date V isits Requested Visits Authorized [id number] Closed Auto-Generate d Referral 12/05/2021 01/04/2023 1 1 Electronically signed by Alejandrina Garnett [employer] TEACHER.RAILROAD CAR LOADER at 12/05/2021 1:33 PM EDT [facility] Summary Purpose Family History No Family History Records FoundNo Family History Records FoundNo Family History Records FoundNo Family History Records FoundNo Family History Records FoundNo Family History Records FoundNo Family History Records FoundNo Family History Records FoundNo Family History Records Found Advance Directives No Advanced Directives Records FoundNo Advanced Directives Records FoundNo Advanced Directives Records FoundNo Advanced Directives Records FoundNo Advanced Directives Records FoundNo Advanced Directives Records FoundNo Advanced Directives Records FoundNo Advanced Directives Records FoundNo Advanced Directives Records Found Reason for Referral Specialty Diagnoses / Procedures Referred By Contac t Referred To Contact Diagnoses Malaise and fatigue Procedures MIND/BODY HOLISTIC PSYCHOTHERAPY OFFICE/OUTPATIENT [facility] MDM 60-74 MINUTES Alejandrina Garnett APRN.RAILROAD CAR LOADER [address] [place] [id number] Referral ID Status Reason Start Date Expiration Date Visits Requested Visits Authorized [id number] Authorized PCP Requested Referral 12/12/2022 1 1 Specialty Diagnoses / Procedures Referred By Contac t Referred To Contact Pain Management Diagnoses Neuropathy Procedures CONSULT TO PAIN MGT OFFICE/OUTPATIENT [facility] 60-74 MINUTES Anabelle Collado, [employer] PE TEACHER.RAILROAD CAR LOADER [address] [place] [address] Referral ID Status Reason Start Date Expiration Date Visits Requested Visits Authorized [id number] Authorized PCP Requested Referral 10/25/2021 10/25/2022 1 1 Specialty Diagnoses / Procedures Referred By Contac t Referred To Contact [facility] Diagnoses Neuropathy Procedures CONSULT TO PHYSICAL THERAPY PHYSICAL THERAPY EVALUATION HIGH COMPLEX 45 MINS Anabelle Collado, [employer] PE TEACHER.RAILROAD CAR LOADER [address] [place] [address] [facility] [place] [address] Referral ID Status Reason Start Date Expiration Date Visits Requested Visits Authorized [id number] Pending Review Auto-Generat ed Referral 10/25/2021 10/25/2022 1 1 Specialty Diagnoses / Procedures Referred By Contac t Referred To Contact Rheumatology Diagnoses Neuropathy Procedures CONSULT TO RHEUM/IMMUN DISEASE OFFICE/OUTPATIENT [facility] 60-74 MINUTES Anabelle Collado, [employer] PE TEACHER.RAILROAD CAR LOADER [address] [place] [address] Referral ID Status Reason Start Date Expiration Date Visits Requested Visits Authorized [id number] Authorized PCP Requested Referral 10/25/2021 10/25/2022 1 1 Specialty Diagnoses / Procedures Referred By Contac t Referred To Contact MR IMAGING Diagnoses Multiple sclerosis (HCC) Procedures MRI BRAIN WO/W IVCON MRI BRAIN BRAIN STEM W/O W/CONTRAST MATERIAL Ivy Kaufman MD [address] [place] [address] Mr Imaging Referral ID Status Reason Start Date Expiration Date V isits Requested Visits Authorized [id number] Closed Auto-Generate d Referral 03/27/2021 11/11/2021 1 1 Additional Source Comments INFORMATION SOURCE (unrecogn ized section and content) DATE CREATED AUTHOR AUTHOR'S ORGANIZ ATION 10/10/2017 [facility] DATE CREATED AUTHOR AUTHOR'S ORGANIZ ATION 02/22/2018 [facility] DATE CREATED AUTHOR AUTHOR'S ORGANIZ ATION 02/25/2018 [facility] DATE CREATED AUTHOR AUTHOR'S ORGANIZ ATION 03/23/2021 [facility] DATE CREATED AUTHOR AUTHOR'S ORGANIZ ATION 12/26/2021 [facility] DATE CREATED AUTHOR AUTHOR'S ORGANIZ ATION 01/22/2022 [facility] DATE CREATED AUTHOR AUTHOR'S ORGANIZ ATION 06/10/2022 [facility] DATE CREATED AUTHOR AUTHOR'S ORGANIZ ATION 03/10/2023 [facility] ([place]) Care Team (unrecognized sect ion and content) [employer] Room Service Supervisor Relationship Specialty Start Date End Date Marie, Tono Alexia [address] [place] [place] [address] PCP - General Family Practice 10/31/20 Tiffany Lindsay MD [address] [facility] [address] [place] [address] Dermatology 04/17/21 [employer] Service Supervisor Relationship Specialty Start Date End Date Tono Armstrong [address] [place] [place] [address] PCP - General Family Practice 10/31/20 Tiffany Lindsay MD [address] [facility] [address] [place] [address] Dermatology 04/17/21 [employer] Room Service Supervisor Relationship Specialty Start Date End Date Tono Armstrong [address] [place] [address] PCP - General Family Practice 10/31/20 Tiffany Lindsay MD [address] [place] [address] Dermatology 04/17/21 [employer] Room Service Supervisor Relationship Specialty Start Date End Date Tono Armstrong [address] [place] [address] PCP - General Family Medicine 10/31/20 Tiffany Lindsay MD [address] [place] [address] Dermatology 04/17/21 Kang Anna DPM [address] [place] [address] Referring Podiatry 11/16/21 [employer] Room Service Supervisor Relationship Specialty Start Date End Date Michelle Gloria MD [address] [place] [address] PCP - General Internal Medicine 12/05/21 Tiffany Lindsay MD [address] [place] [address] Dermatology 04/17/21 Kang Anna DPM [address] [place] [address] Referring Podiatry 11/16/21 [employer] Room Service Supervisor Relationship Specialty Start Date End Date Michelle Gloria MD [address] [place] [address] PCP - General Internal Medicine 12/05/21 Tiffany Lindsay MD [address] [place] [address] Dermatology 04/17/21 Kang Anna DPM [address] [place] [address] Referring Podiatry 11/16/21 [employer] 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 [address] [place] [address] Dermatology 04/17/21 Kang Anna, SANDRA [address] [place] [address] Referring Podiatry 11/16/21 Care Team (unrecognized sect ion and content) Personnel Name: TONO ARMSTRONG Address: Address: [address] [place] [address] Personnel Name: TONO ARMSTRONG Address: Address: [address] [place] [address] Care Team Personnel Name: MD MICHELLE GLORIA Member Role: Primary Care Physician Address: Address: [address] [place] [address] Care Team Related Persons Name: GREG NEVES Name: ARTIE VILLAR Name: ARTIE VILLAR Name: ARTIE VILLAR Source Comments (unrecognize d section and content) In the event this informatio n is protected by the Federal Confidentiality of Alcohol and Drug Abuse Patient Records regulations: The Federal rules restrict any use of the information to criminally investigate or prosecute any alcohol or drug abuse patient.[facility] the event this information is protected by the Federal Confidentiality of Alcohol and Drug Abuse Patient Records regulations: The Federal rules restrict any use of the information to criminally investigate or prosecute any alcohol or drug abuse patient.[facility] the event this information is protected by the Federal Confidentiality of Alcohol and Drug Abuse Patient Records regulations: The Federal rules restrict any use of the information to criminally investigate or prosecute any alcohol or drug abuse patient.[facility] the event this information is protected by the Federal Confidentiality of Alcohol and Drug Abuse Patient Records regulations: The Federal rules restrict any use of the information to criminally investigate or prosecute any alcohol or drug abuse patient.[facility] the event this information is protected by the Federal Confidentiality of Alcohol and Drug Abuse Patient Records regulations: The Federal rules restrict any use of the information to criminally investigate or prosecute any alcohol or drug abuse patient.[facility] the event this information is protected by the Federal Confidentiality of Alcohol and Drug Abuse Patient Records regulations: The Federal rules restrict any use of the information to criminally investigate or prosecute any alcohol or drug abuse patient.[facility] the event this information is protected by the Federal Confidentiality of Alcohol and Drug Abuse Patient Records regulations: The Federal rules restrict any use of the information to criminally investigate or prosecute any alcohol or drug abuse patient.[facility] the event this information is protected by the Federal Confidentiality of Alcohol and Drug Abuse Patient Records regulations: The Federal rules restrict any use of the information to criminally investigate or prosecute any alcohol or drug abuse patient.[facility] the event this information is protected by the Federal Confidentiality of Alcohol and Drug Abuse Patient Records regulations: The Federal rules restrict any use of the information to criminally investigate or prosecute any alcohol or drug abuse patient.[facility] Reason for Visit (unrecogniz ed section and content) Specialty Diagnoses / Procedures Referred By Katrin rico Referred To Contact MR IMAGING Diagnoses Multiple sclerosis (HCC) Procedures MRI BRAIN WO/W IVCON MRI BRAIN BRAIN STEM W/O W/CONTRAST MATERIAL Ivy Kaufman MD [address] [place] [address] Mr Imaging Referral ID Status Reason Start Date Expiration Date V isits Requested Visits Authorized [id number] Closed Auto-Generate d Referral 03/27/2021 11/11/2021 1 1 Reason Comments Established Patient Follow-Up Reason Comments Orders mailed Reason Comments Smoking Cessation Reason Comments Physical Therapy Specialty Diagnoses / Procedures Referred By Katrin rico Referred To Contact [facility] Diagnoses Neuropathy Procedures CONSULT TO PHYSICAL THERAPY PHYSICAL THERAPY EVALUATION HIGH COMPLEX 45 MINS Anabelle Collado, [employer] 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 This clinical summary was aggregated from multiple sources. Caution should be exercised in using it in the provision of clinical care. This summary normalizes information from multiple sources, and as a consequence, information in this document may materially change the coding, format and clinical context of patient data. In addition, data may be omitted in some cases. CLINICAL DECISIONS SHOULD BE BASED ON THE PRIMARY CLINICAL RECORDS. [facility], [facility]. provides no warranty or guarantee of the accuracy or completeness of information in this document.
== END | disposition home or self-care (01) ==
PROVIDERS: Referring Provider Anesthesiology Pain Medicine; Visit Provider Anesthesiology Pain Medicine
DX: F11.20 Opioid dependence, uncomplicated (principal)
CPT/HCPCS: 80307